=== PATIENT | female | born 1990 | race Caucasian/White ===

== ENCOUNTER 2020-05-30 08:03 | Day surgery (SDC) | payer OTHER ==
[~2020-05-30] VITALS: Ht 162.6 cm; Wt 118.8 kg
--- NOTE | ~2020-05-30 | OP ---
PATIENT NAME: KAROLYN WILSON MEDICAL RECORD: [id number] :89 LOCATION:D.OPS ADMISSION DATE: SURGEON: RAVI KUHN MD DATE OF OPERATION: 05/30/2020 PREOPERATIVE DIAGNOSIS: Lymphoma in need of IV access for chemotherapy. POSTOPERATIVE DIAGNOSIS: Lymphoma in need of IV access for chemotherapy. PROCEDURES: 1. Placement of a right-sided PowerPort under fluoroscopic guidance. 2. Immediate surgeon interpretation of the fluoroscopic images. SURGEON: Ravi Kuhn MD INSURANCE CLAIMS SUPERVISOR: None. BLOOD LOSS: Minimal. ANESTHESIA: General. COMPLICATIONS: None. The risks, possible complications and alternatives to the procedure were explained to the patient. She elects to proceed. The discussion specifically included, but was not limited to, bleeding requiring emergency reoperation, infection and the fact that port could flip, it could wear out, it could clot off. No radiologist was present for this procedure. Static fluoroscopic images were obtained and are kept in the PACS system. The surgeon interpretation of the radiographic images is dictated within the body of this operative note. OPERATIVE COURSE: The patient was conveyed to the operating room electively on 05/30/2020. General anesthesia was induced by the anesthesia staff. The chest and right neck were sterilely prepped and draped. I interrogated the right neck with the hand-held ultrasound. I percutaneously accessed the right internal jugular vein in an antegrade fashion. The Guidewire was passed easily. This was visualized under fluoroscopy. An incision was accomplished around the wire. Another incision was accomplished in the right anterior superior chest. This was a transverse incision. The catheter was tunneled from the chest incision to the neck incision. A dilator sheath was advanced over the wire. The dilator and wire were removed. The catheter was advanced down the peel-away sheath, which was then removed. Some subcutaneous dissection was performed around the catheter in the neck. This was to prevent a kink. The port was sutured to the underlying pectoralis fascia with 3-point fixation utilizing 3-0 Prolenes. I then removed some of the subcutaneous adipose tissue from between the port and the skin. The subdermis was approximated with interrupted 3-0 Vicryls. The skin was approximated with a running intracuticular 3-0 Vicryl. I percutaneously accessed the port. It flushed easily. It aspirated dark, nonpulsatile blood. The skin incision was closed in interrupted intracuticular 3-0 Vicryls. Sterile dressings were applied. OPERATIVE REPORT [id number] KAROLYN WILSON An image was obtained over the mediastinum. It appeared that the tip of the catheter was at the cavoatrial junction. Another image was obtained over the right lung apex. There was no evidence of pneumothorax. No evidence of kinking or twisting of the PowerPort catheter. The patient was then extubated and conveyed to post-anesthesia care unit where she was in stable condition. TRANSINT:[id number] Voice Confirmation ID: [id number] DOCUMENT ID: [id number] RAVI KUHN MD CC: [id number] DICTATION DATE: 06/09/20 170 NURSE INFORMATICS EDUCATOR: 06/09/20 182 [facility] 05/30/20 [address] [place] [address]
[~2020-05-30 08:03] MED LIST: ADDERALL 30 MG30 MG PO; BUSPIRONE HCL30 MG PO; COZAAR100 MG PO; GLIPIZIDE10 MG PO; HYDROCODON-ACET15 ML PO; K-DUR20 MEQ PO; KLONOPIN1 MG PO; LASIX40 MG; LIPITOR20 MG PO; OMEPRAZOLE40 MG PO; PROVENTIL/2.5 MG/3 M INH; TOPROL XL200 MG PO; VENTOLIN HFA [SP8 GM INH; ZANAFLEX4 MG PO; ZETIA10 MG PO; ZOLOFT100 MG PO
[2020-05-30 08:20] LABS: BASOPHILS 0.2 % (0-2); EOSINOPHILS 1.3 % (0-7); HEMATOCRIT 41.4 % (36.0-48.0); HEMOGLOBIN 13.3 g/dL (12-16); IMMATURE GRANULOCYTES 0.5 % (0-5); LYMPHOCYTES 21.9 % (15-50); MCH 28.7 pg (26.0-34.0); MCHC 32.1 g/dL (31.0-37.0); MCV 89.2 fL (80.0-100.0); MONOCYTES 5.7 % (2-11); NEUTROPHILS 70.4 % (40-80); PLATELET COUNT 405 10x3/uL (130-400); RBC 4.64 10x6/uL (4.00-5.40); RDW 14.1 % (11.5-14.5); WBC 12.2 10x3/uL (4.8-10.8)
[2020-05-30 08:35] LABS: INR 0.86 (0.85-1.17); PROTIME 11.7 SECONDS (11.6-15.0)
[2020-05-30 10:04] LABS: HCG SERUM NEGATIVE (NEGATIVE)
[2020-05-30 10:34] VITALS: BP 131/80; Ht 162.6 cm; Wt 118.8 kg
--- NOTE | 2020-05-30 18:04 | NUR ---
1550 PT STATES NAUSEA HAS RESOLVED WITH ZOFRAN AND PAIN IS 3/10 AND TOLERABLE. DISCHARGE INSTRUCTIONS GIVEN TO PT AND AND BOTH VERBALIZED AN UNDERSTANDING. IV D/C'D WITH CANNULA INTACT, PRESSURE APPLIED AND DRSG PLACED. DISCHARGE CRITERIA MET AND W/O C/O
== END 2020-05-30 16:00 | disposition home or self-care (01) ==
LOC: D.OPS 08:03
PROVIDERS: Anesthesiology; ATTEND Surgery
DX: C81.92 Hodgkin lymphoma, unspecified, intrathoracic lymph nodes (principal)

== ENCOUNTER 2020-06-29 12:05 | Inpatient (IN) | payer MEDICAID ==
[~2020-06-29] VITALS: Ht 162.6 cm; Wt 117.5 kg
--- NOTE | ~2020-06-29 | HEMODYNAMI ---
PATIENT:KAROLYN WILSON MEDICAL RECORD: [id number] : [birth year] LOCATION:PérezGA Pérez2213 ADMISSION DATE: 06/29/20 Generatedon:07/09/202010:33 Patient name: KAROLYN WILSON Patient #: [id number] SSN : : 1990 Date of study: 07/09/2020 Page: Of Hemodynamic Procedure Report Patient Data Patient Demographics Procedure consent was obtained First Name: KAROLYN Gender: Female Last Name: STEVE : 1990 [facility] Initial: PHANI Age: 30 year(s) Patient #: [id number] Race: Unknown Additional ID: [id number] Contact details Address: [address] [place] [address] State: [place] City: [place] Zip code: [address] Past Medical History Allergies Allergen Reaction Date Comments Reported Other allergy 07/09/2020 wellbutrin Admission Admission Data Admission Date: 06/29/2020 Admission Time: 14:17 Room #: D.[facility] Height (in.): 64 BSA: 2.18 (m2) Height (cm.): 162.56 BMI: 44.29 (kg/m2) Weight (lbs.): 258 Weight (kg.): 117.03 Procedure Procedure Types Cath Procedure Peripheral Cath Diagnostic Procedure Director Oncology Peripheral Procedures PICC PICC Line Placement Procedure Description Procedure Date Procedure Date: 07/09/2020 Procedure Start Time: 9:51 Procedure Staff Name Function Fan Zamora MD Performing Physician Amber Doss RT Farm Tractor Operator Adi MOSCOSO RN Nurse Estevan Wang RT Scrub Procedure Data Cath Procedure Fluoroscopy Diagnostic fluoroscopy Total fluoroscopy Time: 1 time: 1 min min Diagnostic fluoroscopy Total fluoroscopy dose: 15 dose: 15 mGy mGy Procedure Medications Medication Administration Route Dosage Lidocaine 1% added to field 20 Heparin Flush Bag added to field 1 bags (1000units/500ml NS) Benadryl I.V. 50 mg Fentanyl I.V. 50 mcg Versed 1 mg Fentanyl I.V. 50 mcg Versed 1 mg Fentanyl I.V. 50 mcg Versed 1 mg Hemodynamics Rest BSA: 2.18 (m2) O2 Consumption: Estimated: 251.8 (ml/min) O2 Consumption indexed: Estimated:115.5 (ml/min/m) Heart Rate: 92 (bpm) Snapshots Pre Cath Intra NCS Post Cath Vital Signs Time Heart Resp SPO2 etCO2 NIBP (mmHg) Rhythm Pain Sedation Rate (ipm) (%) (mmHg) Status Level (bpm) 9:26:23 91 11 0 137/88(106) NSR 0 (11) 10(A) , No pain 9:30:37 90 28 0 143/95(117) NSR 0 (11) 10(A) , No pain 9:34:55 88 13 95 0 152/95(120) NSR 0 (11) 10(A) , No pain 9:39:20 87 17 96 0 151/93(113) NSR 0 (11) 10(A) , No pain 9:43:38 90 32 98 0 142/88(110) NSR 0 (11) 10(A) , No pain 9:48:37 80 18 100 29.3 Measuring NSR 0 (11) 10(A) , No pain 9:48:53 82 19 100 30 124/86(101) NSR 0 (11) 10(A) , No pain 9:53:52 84 6 100 34.5 Measuring NSR 0 (11) 10(A) , No pain 9:53:54 84 6 100 33.8 144/91(114) NSR 0 (11) 10(A) , No pain 9:58:10 91 20 100 34.5 146/95(119) NSR 0 (11) 10(A) , No pain 10:02:27 92 23 100 34.6 145/97(115) NSR 0 (11) 10(A) , No pain 10:06:42 97 20 99 33.1 142/94(113) NSR 0 (11) 10(A) , No pain 10:10:58 101 18 98 30.1 140/90(106) NSR 0 (11) 10(A) , No pain 10:15:15 102 23 99 36.1 146/92(111) NSR 0 (11) 10(A) , No pain 10:19:28 100 22 98 36.1 146/94(113) NSR 0 (11) 10(A) , No pain 10:23:45 99 22 98 35.3 139/92(110) NSR 0 (11) 10(A) , No pain 10:27:59 99 10 100 30.8 143/92(110) NSR 0 (11) 10(A) , No pain 10:32:16 96 35 99 33 142/87(106) NSR 0 (11) 10(A) , No pain Medications Time Medication Route Dose Verified Delivered Reason Notes Effe ctiveness by by 9:47:45 Lidocaine 1% added 20ml Fan Chavira for local to vial Sera Zamora MD anesthetic field [place] 9:48:00 Heparin Flush added 1 Fan Chavira used for Bag to bags Sera Zamora MD procedure (1000units/500ml field [place] NS) 9:48:10 Benadryl I.V. 50 mg Fan Bustillosr for Burda, BLANKA sedation RN 9:52:05 Fentanyl I.V. 50 Fan Bustillosr for mcg Burda, BLANKA sedation RN 9:52:11 Versed 1 mg Fan Minner for Burda, BLANKA sedation RN 9:56:48 Fentanyl I.V. 50 Fan Minner for mcg Burda, BLANKA sedation RN 9:56:51 Versed 1 mg Fan Minner for Burda, BLANKA sedation RN 10:01:00 Fentanyl I.V. 50 Fan Minner for mcg Burda, BLANKA sedation RN 10:01:03 Versed 1 mg Fan Minner for Burda, BLANKA sedation operating system designer Log Time Note 9:17:11 Patient Height : 64 inches 9:17:11 Patient Weight : 258 lbs 9:18:54 Time tracking: Regular hours (M-F 7:00 - 5:00) 9:19:10 ----Pre-sedation anethsthesia assessment.---- 9:19:45 Plan of Care:Hemodynamics will remain stable., Cardiac rhythm will remain stable., Comfort level will be maintained., Respiratory function will remain adequate., Patient/ family verbilizes understanding of procedure., Procedure tolerated without complication., Recovers from procedure without complications.. 9:19:54 Patient received from Med/Surg to IR Alert and oriented. Tansferred to table in Supine position. 9:19:57 Signed procedure consent form obtained from patient. 9:19:59 - 9:20:16 H&P Date Dictated: 07/09/2020 Greater than 30 days; new H&P dictated by physician. Or brief H&P completed., Emergent; H&P N/A, Within 30 days and on chart., H&P Addendum completed by physician on day of procedure. (MUST COMPLETE FOR ALL OUTPATIENTS), ER History on chart., New H&P dictated by physician.. 9:20:39 Sleep apnea? Yes 9:20:43 Snore? Yes 9:21:00 Airway obstruction? Yes sob 9:21:05 Dentures? No ? 9:21:42 Patient diabetic? Yes. 9:22:22 Patient allergic to Other allergywellbutrin 9:22:26 Pre-procedure instructions explained to patient. 9:22:34 Pre-op teaching completed and patient verbalized understanding. 9:22:38 Family unavailable. 9:22:45 Patient NPO since Midnight. 9:22:50 Is the patient allergic to Iodine/contrast media? No. 9:22:59 Is patient on blood thinner?No 9:23:02 - 9:23:13 Use device set IR Diagnostic 9:23:23 Tegaderm 4 x 4 ([id number]) opened to sterile field. 9:23:24 Sterile Angiographic Pack opened to sterile field. 9:23:25 Bag Decanter () opened to sterile field. 9:23:44 - 9:23:57 ECG and BP/O2 sat monitors applied to patient. 9:24:05 Baseline sample Acquired. 9:25:13 Vital chart was started ::23 Full Disclosure recording started ::25 - 9::34 Right neck area was prepped with chlora-prep and draped in sterile fashion 9:27:36 - 9:27:48 Fire Safety Assessment: A--An alcohol-based skin anteseptic being used preoperatively., C--Open oxygen or nitrous oxide is being used. 9:31:29 5) <15 or on dialysis Very severe, or end stage kidney failure. 9:47:45 Lidocaine 1% 20ml vial added to field was administered by Fan Zamora MD; for local anesthetic; Verbal order read back and verified. 9:48:00 Heparin Flush Bag (1000units/500ml NS) 1 bags added to field was administered by Fan Zamora MD; used for procedure; Verbal order read back and verified. 9:48:10 Benadryl 50 mg I.V. was administered by Adi MOSCOSO RN; for sedation ; Verbal order read back and verified. 9:50:02 Physician arrived 9:50:03 --------ALL STOP TIME OUT------ 9:50:05 Final Timeout: patient, procedure, and site verified with staff and physician. All members of the team are in agreement. 9:51:03 Procedure started. 9:51:09 Local anesthetic to right IJ vein with Lidocaine 1% by Fan Zamora MD.INITIAL ACCESS ONLY 9:52:05 Fentanyl 50 mcg I.V. was administered by Adi MOSCOSO RN; for sedation; Verbal order read back and verified. 9:52:11 Versed 1 mg was administered by Adi MOSCOSO RN; for sedation; Verbal order read back and verified. 9:56:48 Fentanyl 50 mcg I.V. was administered by Adi MOSCOSO RN; for sedation; Verbal order read back and verified. 9:56:51 Versed 1 mg was administered by Adi MOSCOSO RN; for sedation; Verbal order read back and verified. 9:58:29 Venous access obtained using ultrasound guidance. 9:58:32 PICC 10:00:47 AMPLATZ Super Stiff 75cm wire ([id number]) opened to sterile field. 10:00:57 Use device set PICC 10:00:59 SHIELD Sorbaview ([id number]) opened to sterile field. 10:01:00 Fentanyl 50 mcg I.V. was administered by Adi MOSCOSO RN; for sedation; Verbal order read back and verified. 10:01:03 Versed 1 mg was administered by Adi MOSCOSO RN; for sedation; Verbal order read back and verified. 10:05:01 TUNNELED PICC line was trimmed to 25cm and advanced to the superior zaira a cava.Position verified under fluoroscopy. 10:13:46 Dermabond Pen opened to sterile field. 10:14:02 SUTURE SILK 2-0 BLK BR FS 18 I opened to sterile field. 10:14:02 SUTURE L27IN 2-0 MCRYL CROW MO opened to sterile field. 10:29:44 Procedure ended.(Physican Out) 10:30:13 Fluoroscopy time 01.00 minutes. 10:30:16 Fluoroscopy dose: 15 mGy 10:30:16 Flurop Dose total: 15 10:30:25 Procedure and supply charges have been captured, reviewed, submitted an d are correct. 10:32:31 Report given to Med/Surg. 10:33:18 Vital chart was stopped Device Usage Item Name Manufacture Quantity Catalog Hospital Part Current Minimal Lot# / Number Charge Number Stock Stock Serial# Code Tegaderm 4 x 3M 1 [id number] 5 4 (1626W) Sterile Cardinal 1 [id number] [id number] 5 Angiographic Health Pack Bag Decanter Microtek 1 2001S [id number] 61433 [id number] 5 (2001S) Medical Inc. AMPLATZ [place] 1 [id number] 306956 756182 5 Super Stiff Scientific 75cm wire ([id number]) SHIELD Centurion 1 [id number] 689649 537136 5 Sorbaview ([id number]) Dermabond Ethicon 1 [id number] 708756 725607 5 Pen SUTURE SILK Ethicon 1 [id number] 650502 5 2-0 BLK BR FS 18 I SUTURE L27IN Ethicon 1 [id number] 991768 5 2-0 MCRYL CROW MO Signature Audit [place] Stage Time Signature Unsigned Intra-Procedure 07/09/2020 Amber Doss 10:33:13 AM RT(R) [facility] [address] [place] [address]
--- NOTE | ~2020-06-29 | HEMODYNAMI ---
PATIENT:KAROLYN WILSON MEDICAL RECORD: [id number] : [birth year] [id number] ADMISSION DATE: 06/29/20 Generatedon:07/07/202016:23 Patient name: KAROLYN WILSON Patient #: [id number] SSN : : 1990 Date of study: 07/07/2020 Page: Of Hemodynamic Procedure Report Patient Data Patient Demographics Procedure consent was obtained First Name: KAROLYN Gender: Female Last Name: STEVE : 1990 [place] Initial: PHANI Age: 30 year(s) Patient #: [id number] Race: Unknown Additional ID: [id number] Contact details [address]: [address] [place] [address] State: [place] City: [place] Zip code: [address] Admission Admission Data Admission Date: 06/29/2020 Admission Time: 14:17 Room #: 2213 Height (in.): 64 BSA: 2.18 (m2) Height (cm.): 162.56 BMI: 44.29 (kg/m2) Weight (lbs.): 258 Weight (kg.): 117.03 Procedure Procedure Types Cath Procedure Peripheral Cath Diagnostic Procedure Hip Hop Dancer Peripheral Procedures PICC PICC Line Placement Procedure Description Procedure Date Procedure Date: 07/07/2020 Procedure Start Time: 16:16 Procedure Staff Name Function Fan Zamora MD Performing Physician Amber Doss RT [employer] French Teacher Estevan Wang RT Scrub Cecilia Servin RN Nurse Procedure Data Cath Procedure Fluoroscopy Diagnostic fluoroscopy Total fluoroscopy Time: 0.3 time: 0.3 min min Diagnostic fluoroscopy Total fluoroscopy dose: 6 dose: 6 mGy mGy Hemodynamics Rest BSA: 2.18 (m2) O2 Consumption: Estimated: 296.48 (ml/min) O2 Consumption indexed : Estimated:136 (ml/min/m) Pre Cath Intra NCS Post Cath Procedure Log Time Note 15:33:36 Patient Height : 64 inches 15:33:52 Patient Weight : 258 lbs 15:58:32 Use device set IR Diagnostic 15:58:41 Use device set PICC 15:58:48 SHIELD Sorbaview ([id number]) opened to sterile field. 15:58:50 Sterile Angiographic Pack opened to sterile field. 15:58:53 Bag Decanter () opened to sterile field. 15:59:11 PowerPICC 5Fr double lumen catheter opened to sterile field. 16:05:21 Time tracking: Regular hours (M-F 7:00 - 5:00) 16:15:50 Patient received from Med/Surg to IR Alert and oriented. Tansferred to table in Supine position. 16:15:52 Signed procedure consent form obtained from patient. 16:15:54 Pre-procedure instructions explained to patient. 16:15:58 Pre-op teaching completed and patient verbalized understanding. 16:16:04 Right Arm area was prepped with chlora-prep and draped in sterile fashion 16:16:10 --------ALL STOP TIME OUT------ 16:16:11 Final Timeout: patient, procedure, and site verified with staff and physician. All members of the team are in agreement. 16:16:27 Procedure started. 16:16:27 Full Disclosure recording started 16:16:40 Local anesthetic to right arm with Lidocaine 1% by Fan Zamora MD.INITIAL ACCESS ONLY 16:16:43 Venous access obtained using ultrasound guidance. 16:20:33 PICC line was trimmed to 40cm and advanced to the superior vena cava.Position verified under fluoroscopy. 16:20:39 Procedure ended.(Physican Out) 16:20:46 Fluoroscopy time 00.30 minutes. 16:20:50 Fluoroscopy dose: 6 mGy 16:20:50 Flurop Dose total: 6 16:20:58 Procedure and supply charges have been captured, reviewed, submitted and are correct. 16:22:05 Report given to Med/Surg. Device Usage Item Name Manufacture Quantity Catalog Hospital Part Current Minimal Lot# / Number Charge Number Stock Stock Serial# Code SHIELD Centurion 1 [id number] 5 Sorbaview ([id number]) Sterile Cardinal 1 [id number] [id number] 5 Angiographic Health Pack Bag Decanter Microtek 1 [id number] 08462 [id number] 5 (2002S) Medical Inc. PowerPICC [place] 1 [id number] 453130 [id number] 5 5Fr double lumen catheter Signature Audit [place] Stage Time Signature Unsigned Intra-Procedure 07/07/2020 Amber Doss 4:23:04 PM RT(R) [facility] [address] [place] [address]
[2020-06-29 12:53] LABS: HEMATOCRIT 37.4 % (36.0-48.0); HEMOGLOBIN 13.9 g/dL (12-16); MCH 32.3 pg (26.0-34.0); MCHC 37.2 g/dL (31.0-37.0); MCV 86.8 fL (80.0-100.0); MEAN PLATELET VOLUME 9.4 fL (7.4-10.4); PLATELET COUNT 435 10x3/uL (130-400); RBC 4.31 10x6/uL (4.00-5.40); RDW 14.8 % (11.5-14.5); WBC 10.1 10x3/uL (4.8-10.8)
[2020-06-29 13:02] LABS: APTT 34.1 SECONDS (22.8-39.4); INR 0.81 (0.85-1.17); PROTIME 11.2 SECONDS (11.6-15.0)
[2020-06-29 13:15] LABS: EOSINOPHILS 1 % (0-7); LYMPHOCYTES 24 % (15-50); MONOCYTES 2 % (2-11); NEUTROPHILS 71 % (40-80); PLATELET ESTIMATE INCREASED
[2020-06-29 13:20] LABS: CALC OSMOLALITY 222 mosm/kg (275-300); CREATININE - SERUM 0.7 mg/dL (0.6-1.3); GLUCOSE 254 mg/dL (74-106); UREA NITROGEN 6 mg/dL (7-18); eGFR NON AFRICAN AMERICAN > 90 mL/min (90-120)
[2020-06-29 13:22] LABS: ALKALINE PHOSPHATASE 158 U/L (30-120); ALT (SGPT) 40 U/L (10-68)
[2020-06-29 13:23] LABS: BILIRUBIN - TOTAL 0.22 mg/dL (0.2-1.3)
[2020-06-29 13:31] LABS: CHLORIDE - SERUM 92 mmol/L (98-107); SODIUM 106 mmol/L (136-145)
[2020-06-29 13:40] LABS: BILIRUBIN NEGATIVE (NEGATIVE); KETONE SMALL mg/dL (NEGATIVE); NITRITE NEGATIVE (NEGATIVE); UROBILINOGEN NORMAL mg/dL (< 2)
[2020-06-29 13:42] LABS: WHITE CELLS - URINE 0-5 HPF (0-4)
[2020-06-29 13:43] LABS: BACTERIA FEW HPF (NONE SEEN); EPITHELIAL CELLS 0-5 /hpf (0-5)
[2020-06-29 14:13] LABS: CKMB 0.6 U/L (0.0-3.6); CREATINE KINASE 2 UL (21-215)
[2020-06-29 14:14] LABS: TROPONIN-I 0.045 ng/mL (0.000-0.060)
[2020-06-29 15:25] VITALS: BP 150/97
--- NOTE | 2020-06-29 15:26 | NUR ---
SPOKE WITH Tacho MCCONNELL APN ABOUT PT K AND NA LEVELS. ADVISED TO START NS40K @ 75 ML AN HOUR. CONSULT RENAL.
[2020-06-29 17:03] VITALS: BP 132/84; BMI 44.5
[2020-06-29] MEDS ORDERED: FUROSEMIDE20 MG PO ×2 (17:10)
[2020-06-29] MEDS ORDERED: ZOFRAN8 MG PO (17:14)
[2020-06-29] MEDS ORDERED: TRAZODONE HCL50 MG PO (17:15)
[2020-06-29] MEDS ORDERED: ALDACTONE50 MG PO (17:15)
--- NOTE | 2020-06-29 18:01 | NUR ---
CALLED Tacho MCCONNELL APN ABOUT PT REQUEST HER HYDROCODONE RESTARTED. SOMETHING FOR HER ANXIETY IV. HER 4.0 LACTIC ACID. ALSO, UPDATED MED REC FINISHED. CL IN REACH. WILL DO A COVID TEST.
[2020-06-29 19:25] LABS: BILIRUBIN - DIRECT 0.04 mg/dL (0.00-0.30); BILIRUBIN - INDIRECT 0.75 mg/dL (0.00-1.00); BILIRUBIN - TOTAL 0.79 mg/dL (0.2-1.3); CARBON DIOXIDE 26.2 mmol/L (21.0-32.0); CHLORIDE - SERUM 87 mmol/L (98-107); SODIUM 121 mmol/L (136-145)
[2020-06-29 19:57] LABS: CALC OSMOLALITY 257 mosm/kg (275-300); CREATININE - SERUM 0.7 mg/dL (0.6-1.3); UREA NITROGEN 5 mg/dL (7-18)
[2020-06-29 19:58] LABS: ALBUMIN 2.8 g/dL (3.4-5.0); ALKALINE PHOSPHATASE 121 U/L (30-120); ALT (SGPT) 35 U/L (10-68); POTASSIUM - SERUM 3.8 mmol/L (3.5-5.1); PROTEIN - SERUM 6.4 g/dL (6.4-8.2); eGFR NON AFRICAN AMERICAN > 90 mL/min (90-120)
[2020-06-29 19:59] LABS: CALCIUM 6.9 mg/dL (8.5-10.1); GLUCOSE 410 mg/dL (74-106)
[2020-06-29 20:00] VITALS: BP 156/98
--- NOTE | 2020-06-29 20:00 | NUR ---
SITTING UP IN BED WATCHING TV. NO COMPLAINTS VOICED AT THIS TIME. RESP UNLABORED.IV TO LFA INTACT WITOUT REDNESS OR EDEMA NOTED. UP AD EFE IN ROOM. STEADY GAIT. FAMILY AT BEDSIDE
--- NOTE | 2020-06-29 20:20 | NUR ---
CALLED PLACED TO DR WALKER. FELICIA ESPINOSA RETURNED CALL. LAB RESULTS GIVEN TO FELICIA.
[2020-06-30] VITALS (7 sets, daily range): BP systolic 119–155; BP diastolic 71–94; Ht 162.6 cm; Wt 117.5 kg
--- NOTE | 2020-06-30 00:12 | NUR ---
I have reviewed this patient and I concur with the Shift Assessment completed by the Licensed Practical Nurse today this shift.
--- NOTE | 2020-06-30 00:44 | NUR ---
DR BOUCHER PAGED. BENJI DUARTE RETURNED CALL. RESULTS OF SODIUM GIVEN TO FELICIA. STATES SHE WILL RELAY RESULTS TO DR OBUCHER
[2020-06-30 07:35] LABS: ALKALINE PHOSPHATASE 140 U/L (30-120); ALT (SGPT) 47 U/L (10-68); CALCIUM 8.4 mg/dL (8.5-10.1); CARBON DIOXIDE 26.8 mmol/L (21.0-32.0); CREATININE - SERUM 0.9 mg/dL (0.6-1.3); POTASSIUM - SERUM 4.3 mmol/L (3.5-5.1); UREA NITROGEN 8 mg/dL (7-18); eGFR NON AFRICAN AMERICAN 78 mL/min (90-120)
[2020-06-30 07:36] LABS: ALBUMIN 3.5 g/dL (3.4-5.0); PROTEIN - SERUM 6.1 g/dL (6.4-8.2)
[2020-06-30 07:37] LABS: BILIRUBIN - TOTAL 0.62 mg/dL (0.2-1.3); CALC OSMOLALITY 287 mosm/kg (275-300); CHLORIDE - SERUM 96 mmol/L (98-107); GLUCOSE 379 mg/dL (74-106); SODIUM 137 mmol/L (136-145)
[2020-06-30 07:56] LABS: BASOPHILS 0.5 % (0-2); EOSINOPHILS 1.5 % (0-7); HEMATOCRIT 32.2 % (36.0-48.0); IMMATURE GRANULOCYTES 0.4 % (0-5); LYMPHOCYTES 18.4 % (15-50); MCH 30.6 pg (26.0-34.0); MCHC 34.2 g/dL (31.0-37.0); MEAN PLATELET VOLUME 9.9 fL (7.4-10.4); MONOCYTES 16.1 % (2-11); NEUTROPHILS 63.1 % (40-80); PLATELET COUNT 449 10x3/uL (130-400); RBC 3.59 10x6/uL (4.00-5.40); RDW 15.3 % (11.5-14.5); WBC 7.6 10x3/uL (4.8-10.8)
[2020-06-30 07:57] LABS: MCV 89.7 fL (80.0-100.0)
[2020-06-30 12:27] LABS: VANCOMYCIN - TROUGH 10.4 ug/mL (10.0-20.0)
--- NOTE | 2020-06-30 12:56 | NUR ---
ECHO IN ROOM. PT TRYING TO SLEEP. VANC GIVEN PER EMAR. WAITING ON DIFLUCAN FROM PHARMACY. CL IN REACH. WCTM
--- NOTE | 2020-06-30 22:30 | NUR ---
PATIENT RESTING IN BED WATCHING TV WITH AT BEDSIDE. NO S/S OF ACUTE DISTRESS. NO C/O AT THIS TIME. PATIENT IS ON 2L OF O2. PATIENT HAS A LEFT HAND, D5 @ 100 ML/HR. IV IS PATENT WITHOUT REDNESS, SWELLING, OR TENDERNESS. PATIENT RIGHT PORT IS INFECTED. IT WAS PASSED IN REPORT, AND PATIENT TOLD ME ABOUT THE 0000 SODIUM DRAW. WILL CALL [facility] [place] WITH THE RESULTS.
--- NOTE | 2020-07-01 02:24 | NUR ---
I CALLED DR. WALKER CELL PHONE NUMBER AND TRIED TO REPORT THE SODIUM REDRAW. THE NUMBER IS NOT CORRECT AND WOULD NOT RING. I CALLED THE ANSWERING SERVICE THREE TIMES BEFORE THEY PICKED UP AND THE ON-CALL WAS PAGED. IF THEY CALL BACK I WILL REPORT THE NEW LAB. WILL CONTINUE TO MONITOR.
[2020-07-01 04:12] VITALS: BP 131/66
--- NOTE | 2020-07-01 05:30 | NUR ---
PATEINT REFUSED TO TAKE A SHOWER THIS MORNING. PATEINT STATED, "THEY AREN'T COMING TO GET ME UNTIL 1000 OR 1100". I TRIED TO EXPLAIN TO THE PATIENT THAT WE DON'T EVER KNOW WHEN THEY WILL COME AND GET HER, AND THE PATEINT STILL REFUSED TO TAKE HER SHOWER AT THIS TIME. CALL LIGHT WITHIN REACH. WILL CONTINUE TO MONITOR.
[2020-07-01 05:43] LABS: BASOPHILS 0.4 % (0-2); HEMATOCRIT 31.7 % (36.0-48.0); HEMOGLOBIN 10.8 g/dL (12-16); IMMATURE GRANULOCYTES 0.4 % (0-5); LYMPHOCYTES 20.1 % (15-50); MCH 30.1 pg (26.0-34.0); MCHC 34.1 g/dL (31.0-37.0); MCV 88.3 fL (80.0-100.0); MEAN PLATELET VOLUME 9.7 fL (7.4-10.4); MONOCYTES 10.2 % (2-11); NEUTROPHILS 66.9 % (40-80); PLATELET COUNT 438 10x3/uL (130-400); RBC 3.59 10x6/uL (4.00-5.40); RDW 14.9 % (11.5-14.5)
[2020-07-01 05:50] LABS: ANION GAP 14.4 mmol/L (8-16); CALCIUM 8.4 mg/dL (8.5-10.1); CARBON DIOXIDE 25.6 mmol/L (21.0-32.0)
--- NOTE | 2020-07-01 06:45 | NUR ---
A&O RESTING IN BED WITH EYES OPEN. THIS NURSE EXPLAINED TO PATIENT THAT HIBICLEANSE HAS TO BE DONE BEFORE SURGERY THIS AM. PATIENT AGREED AND STATED SHE WILL TAKE ONE AROUND [phone] THIS AM. NPO D/T SURGERY FOR REMOVAL OF INFECTED PORT. NO C/O PAIN. NO S/S OF ACUTE DISTRESS NOTED. IV TO LEFT HAND, D5 NS INFUSING @ 100ML/HR. SITE PATENT WITHOUT REDNESS OR SWELLING. DENIES ANY NEEDS AT THIS TIME. CALL LIGHT IN REACH. WILL CONTINUE TO MONITOR.
[2020-07-01 08:55] VITALS: BP 108/43
--- NOTE | 2020-07-01 12:12 | MORECARE ---
CASE MANAGEMENT DISCHARGE SUMMARY PATIENT: KAROLYN WILSON UNIT: [id number] ADM DATE: 06/29/20 AGE: 30 : [birth year] SEX: F ROOM/BED: D.2213 AUTHOR: KEVIN CEHSTER PHYSICIAN: REFERRING PHYSICIAN: ALEX ELLIOTT MD DATE OF SERVICE: 07/01/20 Discharge Plan Patient Name: KAROLYN WILSON Facility: [facility]:[place] : 1990 Planned Disposition: Home or Self Care Anticipated Discharge Date: Discharge Date: Expected LOS: Initial Reviewer: [email or web address] Initial Review Date: 06/29/2020 Generated: 07/01/20 1:11 pm Patient Name: KAROLYN WILSON Page [id number] at 1212 All edits/amendments must be made on the electronic document DICTATION DATE: 07/01/20 1211 BLAST FURNACE OPERATOR: KARON 07/01/20 1211 RPT#: [id number] DC DATE: STATUS: ADM IN [facility] [address] [place] [address] END OF REPORT
--- NOTE | 2020-07-01 12:45 | MORECARE ---
CASE MANAGEMENT DISCHARGE SUMMARY PATIENT: KAROLYN WILSON UNIT: [id number] ADM DATE: 06/29/20 AGE: 30 : [birth year] SEX: F ROOM/BED: D.2213 AUTHOR: KEVIN CHESTER PHYSICIAN: REFERRING PHYSICIAN: ALEX ELLIOTT MD DATE OF SERVICE: 07/01/20 Discharge Plan Patient Name: KAROLYN WILSON Facility: [facility]:[place] : 1990 Planned Disposition: Home or Self Care Anticipated Discharge Date: Discharge Date: Expected LOS: Initial Reviewer: [email or web address] Initial Review Date: 06/29/2020 Generated: 07/01/20 1:44 pm DCPIA - Discharge Planning Initial Assessment Updated by [email or web address]: Pippa Monsalve on 07/01/20 12:42 pm * Is the patient Alert and Oriented? Yes * How many steps to enter\exit or inside your home? * PCP KELSI ELLIS * [facility] * Preadmission Environment Home with Family * ADLs Independent * Equipment None * List name and contact numbers for known caregivers / representatives who currently or will assist patient after discharge: BRI ENNISKAROLINA [phone] * Verbal permission to speak to the caregivers and representatives has been obtained from the patient. N/A * Community resources currently utilized None * Additional services required to return to the preadmission environment? No * Can the patient safely return to the preadmission environment? Yes * Has this patient been hospitalized within the prior 30 days at any hospital? No Last DP export: 07/01/20 11:12 a Patient Name: KAROLYN WILSON Page 90814 at 1245 All edits/amendments must be made on the electronic document DICTATION DATE: 07/01/20 1244 BOGGER OPERATOR: KARON 07/01/20 1244 RPT#: [id number] DC DATE: STATUS: ADM IN [facility] [address] [place] [address] END OF REPORT
--- NOTE | 2020-07-01 12:53 | MORECARE ---
CASE MANAGEMENT DISCHARGE SUMMARY PATIENT: KAROLYN WILSON UNIT: [id number] ADM DATE: 06/29/20 AGE: 30 : [birth year] SEX: F ROOM/BED: D.2213 AUTHOR: KEVIN CHESTER PHYSICIAN: REFERRING PHYSICIAN: ALEX ELLIOTT MD DATE OF SERVICE: 07/01/20 Discharge Plan Patient Name: KAROLYN WILSON Facility: [facility]:[place] : 1990 Planned Disposition: Home or Self Care Anticipated Discharge Date: Discharge Date: Expected LOS: Initial Reviewer: [email or web address] Initial Review Date: 06/29/2020 Generated: 07/01/20 1:52 pm Comments DCP- Discharge Planning Updated by [email or web address]: Pippa Monsalve on 07/01/20 11:[address] Patient Name: KAROLYN WILSON Admission Status: ER Accout number: [id number] Admission Date: 06-29-2020 : 1990 Admission Diagnosis:SEPSIS, UNSPECIFIED ORGANISM Attending: ALEX ELLIOTT Current LOS: 2 Anticipated DC Date: Planned Disposition: Home or Self Care Primary Insurance: MEDICAID [place] Discharge Planning Comments: CM met with patient to complete initial dc planning assessment. CM educated patient on the CM role and verbal consent given by patient to complete assessment. Patient lives at home with her spouse where she is independent with her care. At discharge patient plans to return home and feels this is a safe discharge. CM discussed availability of home health, rehab services, and medical equipment. She would like to be tested for O2 need prior to discharge. She will need a walk test. Patient denied known discharge needs at this time. CM will continue to follow and will assist as needed with dc plans/needs. Hide Dropper: Pippa Monsalve DCPIA - Discharge Planning Initial Assessment Updated by [email or web address]: Pippa Monsalve on 07/01/20 12:42 pm * Is the patient Alert and Oriented? Yes * How many steps to enter\exit or inside your home? * PCP KELSI ELLIS * [facility] * Preadmission Environment Home with Family * ADLs Independent * Equipment None * List name and contact numbers for known caregivers / representatives who currently or will assist patient after discharge: BRI ENNISKAROLINA [phone] * Verbal permission to speak to the caregivers and representatives has been obtained from the patient. N/A * Community resources currently utilized None * Additional services required to return to the preadmission environment? No * Can the patient safely return to the preadmission environment? Yes * Has this patient been hospitalized within the prior 30 days at any hospital? No Last DP export: 07/01/20 11:45 a Patient Name: KAROLYN WILSON Page 50885 at 1253 All edits/amendments must be made on the electronic document DICTATION DATE: 07/01/20 1253 INVESTIGATOR INTERNAL AFFAIRS: KARON 07/01/20 1253 RPT#: [id number] DC DATE: STATUS: ADM IN [facility] [address] [place] [address] END OF REPORT
[2020-07-01 12:57] VITALS: BP 151/84
[2020-07-01 16:05] VITALS: BP 146/88
[2020-07-01 20:00] VITALS: BP 155/95
[2020-07-02] VITALS: BP 93/56
[2020-07-02 04:00] VITALS: BP 132/88
--- NOTE | 2020-07-02 06:00 | NUR ---
I have reviewed this patient and I concur with the Shift Assessment completed by the Licensed Practical Nurse today this shift.
[2020-07-02 07:29] LABS: BASOPHILS 0.6 % (0-2); EOSINOPHILS 1.8 % (0-7); HEMATOCRIT 32.1 % (36.0-48.0); HEMOGLOBIN 10.4 g/dL (12-16); IMMATURE GRANULOCYTES 0.9 % (0-5); LYMPHOCYTES 24.9 % (15-50); MCHC 32.4 g/dL (31.0-37.0); MCV 89.4 fL (80.0-100.0); MONOCYTES 8.4 % (2-11); NEUTROPHILS 63.4 % (40-80); PLATELET COUNT 297 10x3/uL (130-400); RBC 3.59 10x6/uL (4.00-5.40); WBC 6.6 10x3/uL (4.8-10.8)
[2020-07-02 08:40] LABS: ALBUMIN 2.7 g/dL (3.4-5.0); BILIRUBIN - TOTAL 0.37 mg/dL (0.2-1.3); CALCIUM 8.6 mg/dL (8.5-10.1); CARBON DIOXIDE 23.9 mmol/L (21.0-32.0); CREATININE - SERUM 1.6 mg/dL (0.6-1.3); POTASSIUM - SERUM 3.9 mmol/L (3.5-5.1); PROTEIN - SERUM 6.3 g/dL (6.4-8.2)
[2020-07-02 09:08] VITALS: BP 120/70
[2020-07-02 12:14] VITALS: BP 141/82
[2020-07-02 13:43] LABS: POTASSIUM - URINE 24.9 MMOL/L (12.0-62.0)
[2020-07-02 17:07] VITALS: BP 128/64; BP 94/58
[2020-07-02 20:00] VITALS: BP 99/64
--- NOTE | 2020-07-02 21:38 | NUR ---
TOOK BP BEFORE ADMINISTERING METOPROLOL. BP: 120/90
[2020-07-03] VITALS: BP 107/66
[2020-07-03 04:00] VITALS: BP 107/56
[2020-07-03 06:33] LABS: BASOPHILS 0.4 % (0-2); EOSINOPHILS 1.9 % (0-7); HEMATOCRIT 29.1 % (36.0-48.0); HEMOGLOBIN 9.1 g/dL (12-16); IMMATURE GRANULOCYTES 0.3 % (0-5); MCH 27.5 pg (26.0-34.0); MCHC 31.3 g/dL (31.0-37.0); MCV 87.9 fL (80.0-100.0); MEAN PLATELET VOLUME 9.5 fL (7.4-10.4); MONOCYTES 12.1 % (2-11); NEUTROPHILS 64.3 % (40-80); PLATELET COUNT 299 10x3/uL (130-400); RBC 3.31 10x6/uL (4.00-5.40); RDW 15.1 % (11.5-14.5)
[2020-07-03 07:24] LABS: ALBUMIN 2.7 g/dL (3.4-5.0); BILIRUBIN - TOTAL 0.55 mg/dL (0.2-1.3); CALCIUM 8.4 mg/dL (8.5-10.1); CARBON DIOXIDE 21.8 mmol/L (21.0-32.0); POTASSIUM - SERUM 3.8 mmol/L (3.5-5.1); PROTEIN - SERUM 6.4 g/dL (6.4-8.2); VANCOMYCIN - TROUGH 43.8 ug/mL (10.0-20.0)
[2020-07-03 07:37] LABS: CREATININE - SERUM 3.5 mg/dL (0.6-1.3)
[2020-07-03 09:25] VITALS: BP 100/53
[2020-07-03 13:10] VITALS: BP 90/59
[2020-07-03 13:23] LABS: CREATININE - URINE 50.8 mg/dL (30-125); PRO/CRE RATIO URINE 0.5 mg/g; PROTEIN - URINE 26.9 mg/dL (0.0-11.9)
[2020-07-03 17:48] VITALS: BP 131/86
--- NOTE | 2020-07-04 00:30 | NUR ---
PATIENT C/O NOSE BLEED, APPLIED PRESSURE WITH COLD WASH CLOTHS, CHANGED PATIENTS GOWN, WILL CONTINUE TO MONITOR PATIENT, CALL LIGHT WITHIN REACH
[2020-07-04 04:00] VITALS: BP 116/72
[2020-07-04 07:44] LABS: ALBUMIN 2.5 g/dL (3.4-5.0); ANION GAP 23.8 mmol/L (8-16); BILIRUBIN - TOTAL 0.39 mg/dL (0.2-1.3); CALCIUM 8.2 mg/dL (8.5-10.1); CARBON DIOXIDE 17.2 mmol/L (21.0-32.0); PHOSPHOROUS 7.7 mg/dL (2.5-4.9); PROTEIN - SERUM 6.2 g/dL (6.4-8.2); VANCOMYCIN - RANDOM 27.3 ug/mL (10.0-20.0)
[2020-07-04 07:46] LABS: CREATININE - SERUM 4.4 mg/dL (0.6-1.3)
--- NOTE | 2020-07-04 08:15 | NUR ---
PT ASKED TO TAKE SHOWER. D/C FROM IV, GAVE TOILETRIES AND TOWELS. CHANGED BED LININS, PROVIDED FRESH GOWN. EDUCATED PT TO USE CL WHEN OUT SO SHE COULD BE PLACED BACK ON INFUSION. WILL CONTINUE TO MONITOR.
--- NOTE | 2020-07-04 09:15 | NUR ---
PT C/O ANX, AND ASKED FOR ATIVAN, PROVIDED MEDS PER ORDER. BED LOW, CL IN REACH.
[2020-07-04 10:43] VITALS: BP 142/87
--- NOTE | 2020-07-04 12:30 | NUR ---
PT C/O PAIN 05/19, PROVIDED PAIN MEDS PER ORDER. BED LOW, CL IN REACH.
[2020-07-04 13:03] VITALS: BP 139/88
--- NOTE | 2020-07-04 13:32 | NUR ---
Nutrition follow-up: Pts diet changed to consistent CHO; no free water per renal PO intake is poor at this time Pt in isolation Wt: 258# +BM Will continue to provide food choices and honor food preferences within diet restrictions. Will offer Glucerna Shake nutritional supplements. RDN following.
--- NOTE | 2020-07-04 14:30 | NUR ---
CHANGED DRSG ON RIGHT SUBCLAV INCISION. DRAINAGE RED-YELLOW, FLUSHED WITH SALINE, PACKED 1/4" GAUZE AND APPLIED 2X2 GAUZE WITH PAPER TAPE. PT TOLERATED WELL. BED LOW, CL IN REACH.
--- NOTE | 2020-07-04 15:30 | NUR ---
PT C/O PAIN 05/19, PROVIDED PAIN MEDS PER ORDER, WILL CONTINUE TO MONITOR.
--- NOTE | 2020-07-04 16:06 | NUR ---
RECEIVED BEDSIDE REPORT. PT SITTING UP IN BED A&O X4. DENIES NEEDS. PIV IN RIGHT HAND, PATENT AND INFUSING, NO REDNESS OR SWELLING. O2 SAT 95% VIA NC AT 3L. INCISION ON RIGHT SUBCLAV, DRSG C/D/I, REDNESS AROUND SITE, NO SWELLING. PT ABLE TO AMBULATE WITH NO ASSIST. EDUCATED ON NEEDS AND CL, VERBALIZED UNDERSTANDING. BED LOW, RAILS X2. CL IN REACH, WILL CONTINUE TO MONITOR.
[2020-07-04 17:22] VITALS: BP 134/88
[2020-07-04 21:08] VITALS: BP 122/76
[2020-07-05] VITALS (8 sets, daily range): BP systolic 116–138; BP diastolic 34–88
[2020-07-05 05:47] LABS: BASOPHILS 0.5 % (0-2); EOSINOPHILS 2.4 % (0-7); HEMATOCRIT 27.4 % (36.0-48.0); HEMOGLOBIN 8.6 g/dL (12-16); IMMATURE GRANULOCYTES 0.7 % (0-5); LYMPHOCYTES 22.8 % (15-50); MCH 27.2 pg (26.0-34.0); MCHC 31.4 g/dL (31.0-37.0); MCV 86.7 fL (80.0-100.0); MEAN PLATELET VOLUME 9.5 fL (7.4-10.4); NEUTROPHILS 64.6 % (40-80); PLATELET COUNT 330 10x3/uL (130-400); RBC 3.16 10x6/uL (4.00-5.40); RDW 14.7 % (11.5-14.5); WBC 6.1 10x3/uL (4.8-10.8)
[2020-07-05 05:53] LABS: ANION GAP 16.1 mmol/L (8-16); CREATININE - SERUM 5.1 mg/dL (0.6-1.3); POTASSIUM - SERUM 3.4 mmol/L (3.5-5.1); VANCOMYCIN - RANDOM 23.3 ug/mL (10.0-20.0)
[2020-07-05 05:55] LABS: CARBON DIOXIDE 23.3 mmol/L (21.0-32.0)
--- NOTE | 2020-07-05 10:09 | NUR ---
RESTING IN BED, NO DISTRESS NOTED, IV INFUSING, DRESSING TO R CHEST DRY AND INTACT, CONT TO MONITOR SUGARS
--- NOTE | 2020-07-05 11:01 | NUR ---
DRESSING CHANGED TO R CHEST, NO S/S OF INFECTION NOTED, REPACKED WITH GAUZE, REJI WELL
--- NOTE | 2020-07-05 17:37 | NUR ---
FIRST UNIT PRBC UP AT THIS TIME. VSS.
--- NOTE | 2020-07-05 17:57 | NUR ---
INFUSING 1 UNIT OF BLOOD, CONT TO MONITOR FOR S/S OF REACTION
--- NOTE | 2020-07-05 19:00 | NUR ---
RECEIVED REPORT, ASSUMED CARE, BREATHING EVEN UNLABORED, AT BEDSIDE, CALL LIGHT IN REACH, BED LOWEST POSITION, PRBC'S INFUSING, IV TO L HAND PATENT, NO S/S OF DISTRESS NOTED, 3L NC ON, DRESSING TO R CHEST CDI, DENIES NEEDS
--- NOTE | 2020-07-06 02:52 | NUR ---
I have reviewed this patient and I concur with the Shift Assessment completed by the Licensed Practical Nurse today this shift.
[2020-07-06 04:00] VITALS: BP 130/81
[2020-07-06 06:14] LABS: BASOPHILS 0.6 % (0-2); HEMATOCRIT 29.2 % (36.0-48.0); HEMOGLOBIN 9.1 g/dL (12-16); IMMATURE GRANULOCYTES 1.1 % (0-5); LYMPHOCYTES 25.1 % (15-50); MCH 27.1 pg (26.0-34.0); MCHC 31.2 g/dL (31.0-37.0); MCV 86.9 fL (80.0-100.0); MEAN PLATELET VOLUME 9.2 fL (7.4-10.4); NEUTROPHILS 58.2 % (40-80); PLATELET COUNT 351 10x3/uL (130-400); RBC 3.36 10x6/uL (4.00-5.40); RDW 15.4 % (11.5-14.5); WBC 6.4 10x3/uL (4.8-10.8)
[2020-07-06 06:36] LABS: ANION GAP 13.1 mmol/L (8-16); CALCIUM 8.9 mg/dL (8.5-10.1); CARBON DIOXIDE 25.6 mmol/L (21.0-32.0); CREATININE - SERUM 5.2 mg/dL (0.6-1.3); POTASSIUM - SERUM 3.7 mmol/L (3.5-5.1); VANCOMYCIN - RANDOM 17.5 ug/mL (10.0-20.0)
[2020-07-06 08:00] VITALS: BP 107/62
--- NOTE | 2020-07-06 08:19 | NUR ---
RESTING IN BED, NO DISTRESS NOTED, IV AT KVO, CONT TO MONITOR
--- NOTE | 2020-07-06 11:28 | NUR ---
DRESSING CHANGED TO R CHEST, REJI WELL, NO BLEEDING NOTED, SEROSANG DRAIAGE NOTED
[2020-07-06 12:16] VITALS: BP 116/81
[2020-07-06 15:00] VITALS: BP 136/65
[2020-07-06 20:00] VITALS: BP 151/95
--- NOTE | 2020-07-06 23:54 | NUR ---
RECEIVED REPORT, ASSUMED CARE, BREATHING EVEN UNLABORED, DENIES NEEDS, CALL LIGHT IN REACH, BED LOWEST POSITION, PRBC'S INFUSING, IV TO L HAND PATENT, NO S/S OF DISTRESS NOTED, 3L NC ON, DRESSING TO R CHEST CDI, DENIES NEEDS
--- NOTE | 2020-07-07 01:57 | NUR ---
I have reviewed this patient and I concur with the Shift Assessment completed by the Licensed Practical Nurse today this shift.
[2020-07-07 04:00] VITALS: BP 141/93
[2020-07-07 06:11] LABS: BASOPHILS 0.4 % (0-2); EOSINOPHILS 16.1 % (0-7); HEMATOCRIT 31.3 % (36.0-48.0); HEMOGLOBIN 9.9 g/dL (12-16); IMMATURE GRANULOCYTES 8.3 % (0-5); MCH 27.3 pg (26.0-34.0); MCHC 31.6 g/dL (31.0-37.0); MCV 86.5 fL (80.0-100.0); MEAN PLATELET VOLUME 9.1 fL (7.4-10.4); MONOCYTES 6.9 % (2-11); NEUTROPHILS 51.3 % (40-80); RBC 3.62 10x6/uL (4.00-5.40); RDW 15.3 % (11.5-14.5); WBC 7.9 10x3/uL (4.8-10.8)
[2020-07-07 06:20] LABS: PLATELET COUNT 446 10x3/uL (130-400)
[2020-07-07 06:35] LABS: ANION GAP 17.9 mmol/L (8-16); CALCIUM 9.1 mg/dL (8.5-10.1); CARBON DIOXIDE 25.2 mmol/L (21.0-32.0); CREATININE - SERUM 5.5 mg/dL (0.6-1.3); VANCOMYCIN - RANDOM 14.1 ug/mL (10.0-20.0)
[2020-07-07 06:36] LABS: POTASSIUM - SERUM 3.1 mmol/L (3.5-5.1)
[2020-07-07 08:13] VITALS: BP 120/73
--- NOTE | 2020-07-07 08:25 | NUR ---
ASSESSMENT PER FLOW SHEET. PATIENT IS WITHOUT DISTRESS.CALL LIGHT IN REACH
[2020-07-07 12:04] VITALS: BP 140/98
[2020-07-07 16:00] VITALS: BP 144/104
[2020-07-07 20:00] VITALS: BP 167/100
--- NOTE | 2020-07-07 20:48 | NUR ---
2000) REC'D.WALKING ROUNDS REQUESTING PAIN MEDS AND IV ATIVAN PULLED MAR UP EXPLAINED DILAUDID GIVEN AT 1931,ATIVAN [id number],NORCO 10 AT 1700. STATES I KNOW I HAD IT SOONER THAN THAT EXPLAINED MAR DOCUMENTATION OF MEDS GIVEN IS WHAT I HAVE TO GO BY.WILL CONTINUE TO MONITOR FOR ANY CHGES AND FOLLOW CURRENT PLAN OF CARE.
[2020-07-08 04:00] VITALS: BP 131/79
[2020-07-08 06:30] LABS: BASOPHILS 0.4 % (0-2); EOSINOPHILS 2.6 % (0-7); HEMATOCRIT 32.3 % (36.0-48.0); HEMOGLOBIN 10.2 g/dL (12-16); IMMATURE GRANULOCYTES 1.1 % (0-5); LYMPHOCYTES 26.7 % (15-50); MCH 27.5 pg (26.0-34.0); MCHC 31.6 g/dL (31.0-37.0); MCV 87.1 fL (80.0-100.0); MEAN PLATELET VOLUME 9.1 fL (7.4-10.4); MONOCYTES 11.1 % (2-11); NEUTROPHILS 58.1 % (40-80); PLATELET COUNT 477 10x3/uL (130-400); RBC 3.71 10x6/uL (4.00-5.40); RDW 15.2 % (11.5-14.5)
[2020-07-08 06:33] LABS: ANION GAP 16.1 mmol/L (8-16); CALCIUM 9.2 mg/dL (8.5-10.1); CARBON DIOXIDE 25.5 mmol/L (21.0-32.0); CREATININE - SERUM 5.1 mg/dL (0.6-1.3)
[2020-07-08 06:35] LABS: POTASSIUM - SERUM 3.6 mmol/L (3.5-5.1)
[2020-07-08 06:44] LABS: WBC 9.9 10x3/uL (4.8-10.8)
--- NOTE | 2020-07-08 07:30 | NUR ---
ASSESSMENT PER FLOW SHEET. PATIENT IS WITHOUT DISTRESS.CALL LIGHT IN REACH.
[2020-07-08 08:58] VITALS: BP 150/104
--- NOTE | 2020-07-08 09:49 | OP ---
PATIENT NAME: KAROLYN WILSON MEDICAL RECORD: [id number] :[birth year] LOCATION:D.[facility] ADMISSION DATE:06/29/20 SURGEON: JENN CARPIO MD DATE OF OPERATION: 07/01/2020 PREOPERATIVE DIAGNOSES: 1. Infected port. 2. Non-Hodgkin's lymphoma. 3. Sepsis. POSTOPERATIVE DIAGNOSES: 1. Infected port. 2. Non-Hodgkin's lymphoma. 3. Sepsis. PROCEDURE: 1. Excision of right subclavian vein port. 2. Removal of bilateral chest foreign bodies (dermal implants). SURGEON: Jenn Carpio MD REPORT OF PROCEDURE: The patient's chest was prepped and draped in sterile fashion. The patient had 2 dermal implants present, one on each side of the chest at the level of the clavicles. A small skin incision was made just lateral to these and both of these were easily extracted from the subcutaneous tissues. These wounds were irrigated out and left open. We then approached the patient's right subclavian vein port. The skin incision on top of this had some dehiscence. We were able to make a skin incision with a 15 blade through this and as we penetrated into the pocket, there was murky near purulent appearing material. Cultures were taken times 2. We eventually placed a pursestring around the catheter insertion site with a 3-0 Vicryl. This was tied down tightly as the catheter was removed. There was no sign of any active bleeding. The Prolene sutures were completely excised, we irrigated out the wound bed with peroxide and saline solution. We then reapproximated the subcutaneous tissues and closed the skin incision over its proximal 2/3 using a running 5-0 Monocryl. We then packed the wound with quarter-inch packing strips soaked in peroxide. The wounds were all dressed appropriately. COMPLICATIONS: None. CONDITION: Stable. ANESTHESIA: General endotracheal. BLOOD LOSS: Minimal. TRANSINT:[id number] Voice Confirmation ID: [id number] DOCUMENT ID: [id number] OPERATIVE REPORT [id number] KAROLYN WILSON JENN CARPIO MD at 0949 CC: ALEX ELLIOTT MD [id number] DICTATION DATE: 07/01/20 1536 TEMPLATE REPRODUCTION TECHNICIAN: 07/01/20 2309 ADM IN [facility] [address] [place] [address]
--- NOTE | 2020-07-08 10:06 | NUR ---
Pt has surgical wound located at right subclavian where port was removed on 07/01/20. Dr. Rivera has provided dressing change orders for daily dressing changes. Wound care will monitor as needed.
[2020-07-08 12:03] VITALS: BP 150/96
--- NOTE | 2020-07-08 15:26 | NUR ---
Nutrition follow-up: Pt remains in isolation Receiving a consistent CHO diet PO intake improved; ~75% average of last 3 meals Labs reviewed Wt: 258# Will continue to provide food choices and honor food preferences within diet restrictions. RDN following.
[2020-07-08 18:09] VITALS: BP 174/102
[2020-07-08 20:00] VITALS: BP 148/86
[2020-07-09 04:00] VITALS: BP 139/91
[2020-07-09 06:25] LABS: BASOPHILS 0.2 % (0-2); EOSINOPHILS 2.5 % (0-7); HEMATOCRIT 31.6 % (36.0-48.0); IMMATURE GRANULOCYTES 0.9 % (0-5); LYMPHOCYTES 21.9 % (15-50); MCH 27.3 pg (26.0-34.0); MCHC 31.6 g/dL (31.0-37.0); MCV 86.3 fL (80.0-100.0); MEAN PLATELET VOLUME 8.8 fL (7.4-10.4); MONOCYTES 9.2 % (2-11); NEUTROPHILS 65.3 % (40-80); PLATELET COUNT 420 10x3/uL (130-400); RBC 3.66 10x6/uL (4.00-5.40); RDW 14.8 % (11.5-14.5); WBC 10.2 10x3/uL (4.8-10.8)
[2020-07-09 06:41] LABS: APTT 31.7 SECONDS (22.8-39.4); INR 0.99 (0.85-1.17)
[2020-07-09 06:55] LABS: ANION GAP 14.8 mmol/L (8-16); CARBON DIOXIDE 26.7 mmol/L (21.0-32.0); CREATININE - SERUM 4.8 mg/dL (0.6-1.3); POTASSIUM - SERUM 3.5 mmol/L (3.5-5.1)
--- NOTE | 2020-07-09 09:02 | NUR ---
TAKEN TO SURGERY PER BED FOR CVL
[2020-07-09 09:21] VITALS: BP 152/100
--- NOTE | 2020-07-09 10:55 | NUR ---
RETURNED FROM LINE PLACEMENT, REMOVED NPO FROM DOOR, WILL PROVIDE AM MEDS
[2020-07-09 11:55] VITALS: BP 138/82
[2020-07-09 11:56] VITALS: BP 156/76
[2020-07-09 12:38] VITALS: BP 138/82
--- NOTE | 2020-07-09 12:49 | NUR ---
PT REFUSED POST OP VITALS, REMOVED BP CUFF AND STATED SHE WAS FINE
--- NOTE | 2020-07-09 16:55 | EC ---
PATIENT:KAROLYN WILSON DATE OF SERVICE: 06/29/20 SEX: F MEDICAL RECORD: [id number] DATE OF : [birth year] LOCATION:D.[facility] AGE OF PATIENT: 30 ADMISSION DATE: 06/29/20 REFERRING PHYSICIAN: INTERPRETING PHYSICIAN: VERO CASTRO MD ECHOCARDIOGRAM REPORT ECHO CHARGES 4 ECHO COMPLETE Date: 07/07/20 CLINICAL DIAGNOSIS: CHEMOTHERAPY ECHOCARDIOGRAPHIC MEASUREMENTS (adult normal given) AC root (d.<3.7cm) 3.1 cm LV Septum d (<1.2 cm> 1.2 cm Valve Excursion 1.9 cm LV Septum (systole) 1.5 cm Left Atria (s.<4.0cm> 3.5 cm LVPW d(<1.2cm) 0.8 cm RV (d.<2.3cm) 2.7 cm LVPW (sytole) 1.1 cm LV diastole(<5.6CM) 5.0 cm MV E-F(>70mm/sec) cm LV systole 3.9 cm LVOT Diameter 1.9 cm MV exc.(>10mm) 0.9 cm Est.ejection fraction (50-75%) % DOPPLER: LVIT cm/sec A 89 cm/sec E 118 cm/sec LA cm/sec RVSP 22 mmHg LVOT 81 cm/sec AOP1/2T m/s Asc. Ao 141 cm/sec RVOT 71 cm/sec RA cm/sec PA 86 cm/sec AV Gradient Peak 8.0 mmHg AV Mean 5.8 mmHg AV Area 1.3 cm MV Gradient Peak 6.8 mmHg MV Mean 3.4 mmHg MV Area cm COMMENTS: Veterans Service Representative: Molly GALLOWAY Cable Television Program Director: 3 Dr. Mckinney TAPE# PACS Pericardial Effusion N DATE OF SERVICE: Adequate 2D, color flow imaging, spectral Doppler, and M-Mode. No LVH. LV internal dimension is normal. Wall motion is normal. EF is greater than or equal to 55%. Aortic valve is tricuspid. No evidence of stenosis by Doppler interrogation. Left atrium is normal. Mitral valve shows no prolapse. Trivial MR. Right-sided chambers are grossly normal. Trivial TR. TRANSINT:[id number] Voice Confirmation ID: [id number] DOCUMENT ID: [id number] ECHOCARDIOGRAM REPORT [id number] PLEMMONS,KAROLYNVERO VAZQUEZ MD at 1655 CC: [id number] DICTATION DATE: 07/08/20829 CABLE SPLICING TECHNICIAN: 07/08/20 1103 ADM IN [place] [id number] [place] [id number]
[2020-07-09 17:46] VITALS: BP 164/91
[2020-07-10] VITALS (7 sets, daily range): BP systolic 131–158; BP diastolic 73–103
--- NOTE | 2020-07-10 17:16 | NUR ---
PATIENT IN BED. RESTING. DENIES NEEDS AT THIS TIME. BED LOW POSITION, CALL LIGHT IN REACH. FREE FROM SIGNS OF DISTRESS. WILL CONTINUE TO MONITOR.
[2020-07-11] VITALS: BP 126/75
[2020-07-11 04:00] VITALS: BP 149/91
[2020-07-11 06:40] LABS: BASOPHILS 0.6 % (0-2); EOSINOPHILS 2.1 % (0-7); HEMATOCRIT 30.8 % (36.0-48.0); HEMOGLOBIN 9.6 g/dL (12-16); IMMATURE GRANULOCYTES 0.5 % (0-5); LYMPHOCYTES 15.8 % (15-50); MCH 26.9 pg (26.0-34.0); MCHC 31.2 g/dL (31.0-37.0); MCV 86.3 fL (80.0-100.0); MEAN PLATELET VOLUME 8.7 fL (7.4-10.4); MONOCYTES 7.7 % (2-11); NEUTROPHILS 73.3 % (40-80); PLATELET COUNT 344 10x3/uL (130-400); RBC 3.57 10x6/uL (4.00-5.40); RDW 14.7 % (11.5-14.5)
[2020-07-11 07:06] LABS: ANION GAP 14.2 mmol/L (8-16); CALCIUM 8.9 mg/dL (8.5-10.1); CARBON DIOXIDE 26.4 mmol/L (21.0-32.0); CREATININE - SERUM 3.9 mg/dL (0.6-1.3); PHOSPHOROUS 6.2 mg/dL (2.5-4.9); POTASSIUM - SERUM 3.6 mmol/L (3.5-5.1)
[2020-07-11 09:03] VITALS: BP 152/95
--- NOTE | 2020-07-11 19:00 | NUR ---
BEDSIDE REPORT RECEIVED AND CARE OF PT ASSUMED. PT LYING IN LOW MURRAY'S POSITION WITH EYES CLOSED. RIGHT SC CENTRAL LINE SALINE LOCKED. WILL MONITOR FOR NEEDS. SPOUSE IS AT BEDSIDE.
--- NOTE | 2020-07-11 19:38 | NUR ---
GAVE DILAUDID AND ZOFRAN IVP PER PRN ORDER, PER PT REQUEST FOR PAIN AND NAUSEA. WILL MONITOR FOR EFFECTICENESS.
[2020-07-11 20:24] VITALS: BP 131/81
--- NOTE | 2020-07-11 20:35 | NUR ---
HS MEDICATIONS GIVEN TO INCLUDE NORCO PO PER REQUEST FOR BREAKTHROUGH PAIN. FSBS 192 THIS CHECK REQUIRING COVERAGE WITH 4 UNITS OF INSULIN PER SLIDING SCALE.
[2020-07-12 01:10] VITALS: BP 155/97
--- NOTE | 2020-07-12 04:52 | NUR ---
DENICE BLOOD FROM CENTRAL LINE FOR AM LABS AND DELIVERED TO RETAIL TRAINING MANAGER.
[2020-07-12 05:12] VITALS: BP 145/84
[2020-07-12 05:54] LABS: BASOPHILS 0.2 % (0-2); EOSINOPHILS 2.2 % (0-7); HEMATOCRIT 29.6 % (36.0-48.0); HEMOGLOBIN 9.2 g/dL (12-16); IMMATURE GRANULOCYTES 0.7 % (0-5); LYMPHOCYTES 17.4 % (15-50); MCH 26.7 pg (26.0-34.0); MCHC 31.1 g/dL (31.0-37.0); MEAN PLATELET VOLUME 9.1 fL (7.4-10.4); NEUTROPHILS 72.5 % (40-80); PLATELET COUNT 337 10x3/uL (130-400); RBC 3.44 10x6/uL (4.00-5.40); RDW 14.9 % (11.5-14.5); WBC 12.5 10x3/uL (4.8-10.8)
[2020-07-12 06:15] LABS: ANION GAP 16.9 mmol/L (8-16); CALCIUM 8.5 mg/dL (8.5-10.1); CARBON DIOXIDE 25.1 mmol/L (21.0-32.0); CREATININE - SERUM 3.5 mg/dL (0.6-1.3); PHOSPHOROUS 5.7 mg/dL (2.5-4.9)
[2020-07-12 08:00] VITALS: BP 129/70
[2020-07-12 12:14] VITALS: BP 131/79
[2020-07-12 16:00] VITALS: BP 146/94
[2020-07-12 16:24] LABS: BILIRUBIN NEGATIVE (NEGATIVE); KETONE NEGATIVE (NEGATIVE); NITRITE NEGATIVE (NEGATIVE); UROBILINOGEN NORMAL mg/dL (< 2)
[2020-07-12 16:25] LABS: BACTERIA FEW HPF (NONE SEEN); EPITHELIAL CELLS 0-5 /hpf (0-5)
--- NOTE | 2020-07-12 19:00 | NUR ---
BEDSIDE REPORT RECEIVED AND CARE OF PT ASSUMED. PT LYING IN LOW MURRAY'S POSITION WATCHING TV. RIGHT SC SALINE LOCKED. WILL MONITOR FOR NEEDS. SPOUSE IS AT BEDSIDE.
--- NOTE | 2020-07-12 20:00 | NUR ---
GAVE DILAUDID AND ZOFRAN IVP PER REQUEST FOR PAIN AND NAUSEA. WILL MONITOR FOR EFFECTIVENESS.
--- NOTE | 2020-07-12 21:31 | NUR ---
HS MEDICATIONS GIVEN. FSBS 237 THIS CHECK REQUIRING COVERAGE WITH 8 UNITS OF INSULIN PER SLIDING SCALE.
[2020-07-12 21:35] VITALS: BP 139/87
[2020-07-13 01:23] VITALS: BP 134/67
[2020-07-13 04:52] LABS: BASOPHILS 0.3 % (0-2); EOSINOPHILS 2.7 % (0-7); HEMATOCRIT 30.2 % (36.0-48.0); HEMOGLOBIN 9.6 g/dL (12-16); IMMATURE GRANULOCYTES 0.9 % (0-5); LYMPHOCYTES 21.2 % (15-50); MCH 27.4 pg (26.0-34.0); MCHC 31.8 g/dL (31.0-37.0); MEAN PLATELET VOLUME 9.1 fL (7.4-10.4); MONOCYTES 6.4 % (2-11); NEUTROPHILS 68.5 % (40-80); PLATELET COUNT 324 10x3/uL (130-400); RBC 3.51 10x6/uL (4.00-5.40); RDW 14.7 % (11.5-14.5); WBC 11.7 10x3/uL (4.8-10.8)
[2020-07-13 04:59] LABS: ANION GAP 15.5 mmol/L (8-16); CALCIUM 8.4 mg/dL (8.5-10.1); CARBON DIOXIDE 27.3 mmol/L (21.0-32.0); CREATININE - SERUM 3.1 mg/dL (0.6-1.3); PHOSPHOROUS 5.8 mg/dL (2.5-4.9); POTASSIUM - SERUM 3.8 mmol/L (3.5-5.1)
[2020-07-13 05:31] VITALS: BP 141/93
[2020-07-13 08:36] VITALS: BP 122/77
--- NOTE | 2020-07-13 09:00 | NUR ---
DRESING CHANGED TO RIGHT UPPER CHEST WITH SEROUS DRAINAGE NOTED. SURROUNDING SKIN W/O ANY S/S OF INFECTION. CVL DRESSING CHANGED USING ASEPTIC TECHNIQUE TO RIGHT UPPER CHEST. DILAUDID AND ZOFRAN GIVEN FOR PAIN MANAGEMENT AND EFFCTIVE. ENCOURAGED TO USE CALL LIGHT FOR ASSSIT.
[2020-07-13] MEDS ORDERED: OMNICEF300 MG PO (09:02)
[2020-07-13] MEDS ORDERED: DILAUDID2 MG PO (09:26)
--- NOTE | 2020-07-13 09:56 | NUR ---
OFFERED PT REFERRAL TO TOBACCO QUITLINE-SHE DECLINED. PER LUKE ROSS APN, PT IS NOT TO RECEIVE FLU SHOT AT THIS TIME.
[2020-07-13] MEDS ORDERED: NICODERM CQ1 EAC2 TOPICAL (09:58)
--- NOTE | 2020-07-13 10:05 | NUR ---
RX FOR OMNICEF CALLED TO [facility] IN [place], SPOKE WITH SAVANNAH, PHARMACIST.
--- NOTE | 2020-07-13 10:10 | MORECARE ---
CASE MANAGEMENT DISCHARGE SUMMARY PATIENT: KAROLYN WILSON UNIT: [id number] ADM DATE: 06/29/20 AGE: 30 : [birth year] SEX: F ROOM/BED: D.2213 AUTHOR: KEVIN CHESTER PHYSICIAN: REFERRING PHYSICIAN: ALEX ELLIOTT MD DATE OF SERVICE: 07/13/20 Discharge Plan Patient Name: KAROLYN WILSON Facility: [facility]:[place] : 1990 Planned Disposition: Home or Self Care Anticipated Discharge Date: Discharge Date: Expected LOS: Initial Reviewer: [email or web address] Initial Review Date: 06/29/2020 Generated: 07/13/20 11:09 am DCP- Discharge Planning Updated by [email or web address]: Pippa Monsalve on 07/01/20 11:[address] Patient Name: KAROLYN WILSON Admission Status: ER Accout number: [id number] Admission Date: 06-29-2020 : 1990 Admission Diagnosis:SEPSIS, UNSPECIFIED ORGANISM Attending: ALEX ELLIOTT Current LOS: 2 Anticipated DC Date: Planned Disposition: Home or Self Care Primary Insurance: MEDICAID [place] Discharge Planning Comments: CM met with patient to complete initial dc planning assessment. CM educated patient on the CM role and verbal consent given by patient to complete assessment. Patient lives at home with her spouse where she is independent with her care. At discharge patient plans to return home and feels this is a safe discharge. CM discussed availability of home health, rehab services, and medical equipment. She would like to be tested for O2 need prior to discharge. She will need a walk test. Patient denied known discharge needs at this time. CM will continue to follow and will assist as needed with dc plans/needs. Word Processor: Pippa Monsalve DCPIA - Discharge Planning Initial Assessment Updated by [email or web address]: Pippa Monsalve on 07/01/20 12:42 pm * Is the patient Alert and Oriented? Yes * How many steps to enter\exit or inside your home? * PCP KELSI ELLIS * [facility] * Preadmission Environment Home with Family * ADLs Independent * Equipment None * List name and contact numbers for known caregivers / representatives who currently or will assist patient after discharge: BRI JUAREZ [phone] * Verbal permission to speak to the caregivers and representatives has been obtained from the patient. N/A * Community resources currently utilized None * Additional services required to return to the preadmission environment? No * Can the patient safely return to the preadmission environment? Yes * Has this patient been hospitalized within the prior 30 days at any hospital? No External Providers External Provider: [facility] Next Contact Date: Service Request Date: Service Type: Resolution: Reviewer: Comments: Last DP export: 07/01/20 11:53 a Patient Name: KAROLYN WILSON Page [phone] at 1010 All edits/amendments must be made on the electronic document DICTATION DATE: 07/13/201008 MACHINE SOLE LEVELER: KARON 07/13/201008 RPT#: [id number] DC DATE: STATUS: ADM IN [facility] [address] [place] [address] END OF REPORT
--- NOTE | 2020-07-13 11:12 | MORECARE ---
CASE MANAGEMENT DISCHARGE SUMMARY PATIENT: KAROLYN WILSON UNIT: [id number] ADM DATE: 06/29/20 AGE: 30 : [birth year] SEX: F ROOM/BED: D.2213 AUTHOR: NEMO,DOC PHYSICIAN: REFERRING PHYSICIAN: ALEX ELLIOTT MD DATE OF SERVICE: 07/13/20 Discharge Plan Patient Name: KAROLYN WILSON Facility: [facility]:[place] : 1990 Planned Disposition: Home with Home Health Anticipated Discharge Date: Discharge Date: Expected LOS: Initial Reviewer: [email or web address] Initial Review Date: 06/29/2020 Generated: 07/13/20 12:12 pm Comments DCP- Discharge Planning Updated by [email or web address]: Uriel Hinojosa on 07/13/20 10:[address] Patient Name: KAROLYN WILSON Encounter No: [id number] : 1990 Primary Insurance: MEDICAID [place] Anticipated DC Date: Planned Disposition: Home with Home Health External Planned Provider: : DCP follow-up note: CM met with patient to complete DC plan and needs. CM educated patient on the CM role and verbal consent was given by patient to complete assessment. CM verified patient's address, phone number, and emergency contact phone numbers. Patient lives at home with her spouse, Adeline Wilson ([phone]). At discharge patient plans to return home and feels this is a safe discharge. The patient has 0 steps to navigate to enter the home and it is safe. CM discussed availability of home health, rehab services, and medical equipment. Patient declined SNF, IPR, and DME. Patient would like to try HHS with [facility] for right chest wound dressing changes and PICC line care. 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 Patient further expressed that she feels competent enough to flush and cap her PICC Line (No IV ABX at this time). Patient stated that HHS will be needed only for right chest wound dressing changes and PICC line dressing change. Spoke with [facility], Martita (weekend intake nurse) at [phone]. Martita stated that [facility] does not have the supplies for flushing PICC lines and other arrangements would have to be made. Patient stated that she will be able to flush and cap lines. Martita stated that [facility] would be able to change the PICC dressing and care for the right chest wound. Clinicals and HH consult was faxed to [facility]'s weekend fax number [phone]. Fax confirmation received and uploaded. The patient neither mentioned nor discussed other discharge needs and she is satisfied with DC plan. Transportation provider at discharge will be her spouse, Adeline. CM will continue to follow and will assist as needed with dc plans/needs. Uriel Hinojosa DCP- Discharge Planning Updated by [email or web address]: Pippa Monsalve on 07/01/20 11:[address] Patient Name: KAROLYN WILSON Admission Status: ER Accout number: [id number] Admission Date: 06-29-2020 : 1990 Admission Diagnosis:SEPSIS, UNSPECIFIED ORGANISM Attending: ALEX ELLIOTT Current LOS: 2 Anticipated DC Date: Planned Disposition: Home or Self Care Primary Insurance: MEDICAID [place] Discharge Planning Comments: CM met with patient to complete initial dc planning assessment. CM educated patient on the CM role and verbal consent given by patient to complete assessment. Patient lives at home with her spouse where she is independent with her care. At discharge patient plans to return home and feels this is a safe discharge. CM discussed availability of home health, rehab services, and medical equipment. She would like to be tested for O2 need prior to discharge. She will need a walk test. Patient denied known discharge needs at this time. CM will continue to follow and will assist as needed with dc plans/needs. Tie Tamper: Pippa Monsalve DCPIA - Discharge Planning Initial Assessment Updated by [email or web address]: Pippa Monsalve on 07/01/20 12:42 pm * Is the patient Alert and Oriented? Yes * How many steps to enter\exit or inside your home? * PCP KELSI ELLIS * [facility] * Preadmission Environment Home with Family * ADLs Independent * Equipment None * List name and contact numbers for known caregivers / representatives who currently or will assist patient after discharge: ADELINE JUAREZ [phone] * Verbal permission to speak to the caregivers and representatives has been obtained from the patient. N/A * Community resources currently utilized None * Additional services required to return to the preadmission environment? No * Can the patient safely return to the preadmission environment? Yes * Has this patient been hospitalized within the prior 30 days at any hospital? No Last DP export: 07/13/20 9:10 a Patient Name: KAROLYN WILSON Page [id number] at 1112 All edits/amendments must be made on the electronic document DICTATION DATE: 07/13/20 111 FIRE BOSS: KARON 07/13/20 1112 RPT#: [id number] DC DATE: STATUS: ADM IN [facility] [address] [place] [address] END OF REPORT
--- NOTE | 2020-07-13 11:27 | NUR ---
PATIENT VERBALIZED UNDERSTANDING OF DISCHARGE INSTRUCTIONS AND STABLE AT TIME OF DEPARTURE.
--- NOTE | 2020-07-14 09:10 | MORECARE ---
CASE MANAGEMENT DISCHARGE SUMMARY PATIENT: KAROLYN WILSON UNIT: [id number] ADM DATE: 06/29/20 AGE: 30 : [birth year] SEX: F ROOM/BED: D.2213 AUTHOR: NEMO,DOC PHYSICIAN: REFERRING PHYSICIAN: ALEX ELLIOTT MD DATE OF SERVICE: 07/14/20 Discharge Plan Patient Name: KAROLYN WILSON Facility: [facility]:[place] : 1990 Planned Disposition: Home with Home Health Anticipated Discharge Date: Discharge Date: 07/13/2020 Expected LOS: Initial Reviewer: [email or web address] Initial Review Date: 06/29/2020 Generated: 07/14/20 10:10 am Comments DCP- Discharge Planning Updated by [email or web address]: Uriel Micaela on 07/13/20 10:[address] Patient Name: KAROLYN WILSON Encounter No: [id number] : 1990 Primary Insurance: [place]ID [place] Anticipated DC Date: Planned Disposition: Home with Home Health External Planned Provider: : DCP follow-up note: CM met with patient to complete DC plan and needs. CM educated patient on the CM role and verbal consent was given by patient to complete assessment. CM verified patient's address, phone number, and emergency contact phone numbers. Patient lives at home with her spouse, Adeline Wilson ([phone]). At discharge patient plans to return home and feels this is a safe discharge. The patient has 0 steps to navigate to enter the home and it is safe. CM discussed availability of home health, rehab services, and medical equipment. Patient declined SNF, IPR, and DME. Patient would like to try HHS with [facility] for right chest wound dressing changes and PICC line care. 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 Patient further expressed that she feels competent enough to flush and cap her PICC Line (No IV ABX at this time). Patient stated that HHS will be needed only for right chest wound dressing changes and PICC line dressing change. Spoke with [facility], Martita (weekend intake nurse) at [phone]. Martita stated that [facility] does not have the supplies for flushing PICC lines and other arrangements would have to be made. Patient stated that she will be able to flush and cap lines. Martita stated that [facility] would be able to change the PICC dressing and care for the right chest wound. Clinicals and HH consult was faxed to [facility]'s weekend fax number [phone]. Fax confirmation received and uploaded. The patient neither mentioned nor discussed other discharge needs and she is satisfied with DC plan. Transportation provider at discharge will be her spouse, Adeline. CM will continue to follow and will assist as needed with dc plans/needs. Uriel Hinojosa DCP- Discharge Planning Updated by [email or web address]: Pippa Monsalve on 07/01/20 11:[address] Patient Name: KAROLYN WILSON Admission Status: Accout number: [id number] Admission Date: 06-29-2020 : 1990 Admission Diagnosis:SEPSIS, UNSPECIFIED ORGANISM Attending: ALEX ELLIOTT Current LOS: 2 Anticipated DC Date: Planned Disposition: Home or Self Care Primary Insurance: [place] Discharge Planning Comments: CM met with patient to complete initial dc planning assessment. CM educated patient on the CM role and verbal consent given by patient to complete assessment. Patient lives at home with her spouse where she is independent with her care. At discharge patient plans to return home and feels this is a safe discharge. CM discussed availability of home health, rehab services, and medical equipment. She would like to be tested for O2 need prior to discharge. She will need a walk test. Patient denied known discharge needs at this time. CM will continue to follow and will assist as needed with dc plans/needs. Clinical Research Director: Pippa Monsalve DCPIA - Discharge Planning Initial Assessment Updated by [email or web address]: Pippa Monsalve on 07/01/20 12:42 pm * Is the patient Alert and Oriented? Yes * How many steps to enter\exit or inside your home? * PCP KELSI ELLIS * [facility] * Preadmission Environment Home with Family * ADLs Independent * Equipment None * List name and contact numbers for known caregivers / representatives who currently or will assist patient after discharge: ADELINE JUAREZ [phone] * Verbal permission to speak to the caregivers and representatives has been obtained from the patient. N/A * Community resources currently utilized None * Additional services required to return to the preadmission environment? No * Can the patient safely return to the preadmission environment? Yes * Has this patient been hospitalized within the prior 30 days at any hospital? No Last DP export: 07/13/20 10:12 a Patient Name: KAROLYN WILSON Page [id number] at 0910 All edits/amendments must be made on the electronic document DICTATION DATE: 07/14/20909 BENCH JEWELER: KARON 07/14/20909 RPT#: [id number] DC DATE:07/13/20 STATUS: DIS IN [facility] [address] [place] [address] END OF REPORT
== END 2020-07-13 11:28 | disposition home health service (06) | DRG 314 ==
LOC: D.ER 12:05 → D.MS 14:17 → D.EDHOLD 14:17 → D.MS 15:11
PROVIDERS: Emergency Medicine; Family Medicine; General Practice; Internal Medicine; Internal Medicine Nephrology; ADMIT Legal Medicine; ATTEND Legal Medicine
PROC: 0JPT0WZ Removal of Totally Implantable Vascular Access Device from Trunk Subcutaneous Tissue and Fascia, Open Approach (ICD-10-PCS; 2020-07-01)
PROC: 05HY33Z Insertion of Infusion Device into Upper Vein, Percutaneous Approach (ICD-10-PCS; 2020-07-07)
PROC: 05HM33Z Insertion of Infusion Device into Right Internal Jugular Vein, Percutaneous Approach (ICD-10-PCS; 2020-07-09)
PROC: 0JH63XZ Insertion of Tunneled Vascular Access Device into Chest Subcutaneous Tissue and Fascia, Percutaneous Approach (ICD-10-PCS; principal; 2020-07-09 09:18)
DX: T80.219A Unspecified infection due to central venous catheter, initial encounter (principal); N17.0 Acute kidney failure with tubular necrosis; A41.01 Sepsis due to Methicillin susceptible Staphylococcus aureus; C85.90 Non-Hodgkin lymphoma, unspecified, unspecified site; E87.1 Hypo-osmolality and hyponatremia; L03.313 Cellulitis of chest wall; E87.2 Acidosis; D47.3 Essential (hemorrhagic) thrombocythemia; F41.9 Anxiety disorder, unspecified; E87.6 Hypokalemia; T36.8X1A Poisoning by other systemic antibiotics, accidental (unintentional), initial encounter

== ENCOUNTER 2020-07-14 16:01 | Outpatient (CLI) | payer MEDICAID ==
[~2020-07-14] VITALS: Ht 162.6 cm; Wt 119.1 kg
[~2020-07-14 16:01] MED LIST changes: +ALDACTONE50 MG PO; +DILAUDID2 MG PO; +FUROSEMIDE20 MG PO; +NICODERM CQ1 EAC2 TOPICAL; +OMNICEF300 MG PO; +TRAZODONE HCL50 MG PO; +ZOFRAN8 MG PO
--- NOTE | 2020-07-14 16:39 | NUR ---
RIGHT SUBCLAVIAN CENTRAL LINE REMOVED AFTER SUTURES REMOVED. TIP INTACT. PRESSURE HELD FOR 8 MINUTES. PATIENT ADVISED TO REMAIN IN BED FOR AT LEAST 15 MINUTES
[2020-07-14 16:58] VITALS: Ht 162.6 cm; Wt 119.1 kg
--- NOTE | 2020-07-14 17:15 | NUR ---
PATIENT HAS NO SIGNS OF COMPLICATIONS FROM CENTRA LINE REMOVAL. PATIENT DC'D HOME VIA WHEELCHAIR TO PRIVATE VEHICLE WITH SPOUSE
== END 2020-07-14 17:15 | disposition home or self-care (01) ==
LOC: D.OPS 16:01
PROVIDERS: ATTEND Legal Medicine
DX: C81.92 Hodgkin lymphoma, unspecified, intrathoracic lymph nodes (principal)

== ENCOUNTER 2020-07-29 06:55 | Day surgery (SDC) | payer MEDICAID ==
[~2020-07-29] VITALS: Ht 162.6 cm; Wt 112.0 kg
--- NOTE | ~2020-07-29 | OP ---
PATIENT NAME: KAROLYN WILSON MEDICAL RECORD: [id number] :[birth year] LOCATION:D.OPS ADMISSION DATE: SURGEON: JENN CARPIO MD DATE OF OPERATION: 07/29/2020 PREOPERATIVE DIAGNOSES: 1. Non-Hodgkin's lymphoma. 2. Hypertension. 3. Hypercholesterolemia. 4. Diabetes mellitus. 5. Tobacco dependence syndrome. POSTOPERATIVE DIAGNOSES: 1. Non-Hodgkin's lymphoma. 2. Hypertension. 3. Hypercholesterolemia. 4. Diabetes mellitus. 5. Tobacco dependence syndrome. PROCEDURE: 1. Left subclavian vein PowerPort placement. 2. Fluoroscopic interpretation. SURGEON: Jenn Carpio MD DESCRIPTION OF PROCEDURE: The patient's left chest was prepped and draped in sterile fashion. A needle was used to cannulate the left subclavian vein and a guidewire was advanced with ease. Fluoroscopy was used to note that the wire was in good position in the venous system. A skin incision was made on the left superior lateral chest and the subcutaneous pouch was made over the pectoral fascia. The catheter was tunneled between this pouch and the wire exit site. We then sutured the port to the pectoral fascia with interrupted 4-0 Prolenes times 2. The catheter was cut with a beveled tip at 30 cm. The dilator trocar device was placed over the wire and the wire and dilator were removed. The catheter tip was advanced through the trocar until it rested in good position at the right atrial superior vena caval junction. The catheter aspirated nonpulsatile dark blood and flushed easily with heparinized saline. The subcutaneous tissues were then reapproximated with interrupted 3-0 Vicryl and the skin was closed with running subcuticular 5-0 Monocryl. COMPLICATIONS: None. CONDITION: Stable. ANESTHESIA: General endotracheal and local. BLOOD LOSS: Minimal. TRANSINT:[id number] Voice Confirmation ID: [id number] DOCUMENT ID: [id number] OPERATIVE REPORT [id number] KAROLYN WILSNO JENN CARPIO MD CC: ALEX ELLIOTT MD [id number] DICTATION DATE: 07/29/20 1240 PULLBOAT ENGINEER: 07/29/20 2159 [facility] 07/29/20 [address] [place] [address]
[~2020-07-29 06:55] MED LIST changes: +MULTI-DAY VITAM1 TAB PO
[2020-07-29 07:12] LABS: BASOPHILS 0.4 % (0-2); EOSINOPHILS 3.4 % (0-7); HEMATOCRIT 34.5 % (36.0-48.0); HEMOGLOBIN 10.9 g/dL (12-16); IMMATURE GRANULOCYTES 0.2 % (0-5); LYMPHOCYTES 25.1 % (15-50); MCH 27.3 pg (26.0-34.0); MCHC 31.6 g/dL (31.0-37.0); MCV 86.5 fL (80.0-100.0); MONOCYTES 4.9 % (2-11); RBC 3.99 10x6/uL (4.00-5.40); RDW 16.7 % (11.5-14.5); WBC 11.3 10x3/uL (4.8-10.8)
[2020-07-29 07:13] LABS: PLATELET COUNT 251 10x3/uL (130-400)
[2020-07-29 07:19] LABS: CALC OSMOLALITY 281 mosm/kg (275-300); CALCIUM 9.7 mg/dL (8.5-10.1); CARBON DIOXIDE 25.5 mmol/L (21.0-32.0); CHLORIDE - SERUM 100 mmol/L (98-107); CREATININE - SERUM 0.9 mg/dL (0.6-1.3); POTASSIUM - SERUM 4.3 mmol/L (3.5-5.1); SODIUM 136 mmol/L (136-145); UREA NITROGEN 25 mg/dL (7-18); eGFR NON AFRICAN AMERICAN 78 mL/min (90-120)
[2020-07-29 07:22] LABS: GLUCOSE 198 mg/dL (74-106)
[2020-07-29 07:39] LABS: APTT 30.4 SECONDS (22.8-39.4); INR 0.88 (0.85-1.17); PROTIME 11.9 SECONDS (11.6-15.0)
[2020-07-29 08:11] VITALS: BP 110/67; Ht 162.6 cm; Wt 112.0 kg
[2020-07-29 08:18] LABS: HCG SERUM NEGATIVE (NEGATIVE)
--- NOTE | 2020-07-29 13:04 | NUR ---
PATIENT STATES PAIN 7.10 ON L CHEST FROM PORT. STATED SHE DOES HAVE CHRONIC BACK PAIN. EDUCATED ON PAIN TREATMENT AFTER SURGERY.
== END 2020-07-29 14:25 | disposition home or self-care (01) ==
LOC: D.OPS 06:55
PROVIDERS: Anesthesiology; ATTEND Surgery
DX: C81.92 Hodgkin lymphoma, unspecified, intrathoracic lymph nodes (principal); I10 Essential (primary) hypertension; E78.00 Pure hypercholesterolemia, unspecified; E11.9 Type 2 diabetes mellitus without complications; F17.200 Nicotine dependence, unspecified, uncomplicated; K21.9 Gastro-esophageal reflux disease without esophagitis; T81.40XD Infection following a procedure, unspecified, subsequent encounter

== ENCOUNTER 2020-12-30 23:32 | Inpatient (IN) | payer MEDICAID ==
[~2020-12-30] VITALS: Ht 162.6 cm; Wt 106.6 kg
[~2020-12-30 23:32] MED LIST changes: +MACROBID100 MG PO
[2020-12-31 00:39] LABS: BASOPHILS 0.4 % (0-2); EOSINOPHILS 2.5 % (0-7); HEMATOCRIT 37.3 % (36.0-48.0); HEMOGLOBIN 13.7 g/dL (12-16); IMMATURE GRANULOCYTES 0.3 % (0-5); MCH 30.6 pg (26.0-34.0); MCHC 36.7 g/dL (31.0-37.0); MCV 83.4 fL (80.0-100.0); MEAN PLATELET VOLUME 9.1 fL (7.4-10.4); MONOCYTES 9.4 % (2-11); NEUTROPHIL ABS# 5.71 10x3/uL (1.56-6.13); NEUTROPHILS 80.4 % (40-80); RBC 4.47 10x6/uL (4.00-5.40); RDW 16.6 % (11.5-14.5); WBC 7.1 10x3/uL (4.8-10.8)
[2020-12-31 00:48] LABS: PLATELET COUNT 335 10x3/uL (130-400)
[2020-12-31 01:51] LABS: CALC OSMOLALITY 274 mosm/kg (275-300); CHLORIDE - SERUM 91 mmol/L (98-107); CREATININE - SERUM 0.5 mg/dL (0.6-1.3); GLUCOSE 371 mg/dL (74-106); LIPASE 79 U/L (73-393); MAGNESIUM - SERUM 1.3 mg/dL (1.8-2.4); POTASSIUM - SERUM 2.9 mmol/L (3.5-5.1); SODIUM 130 mmol/L (136-145); UREA NITROGEN 11 mg/dL (7-18); eGFR NON AFRICAN AMERICAN > 90 mL/min (90-120)
[2020-12-31 01:52] LABS: ALBUMIN 3.6 g/dL (3.4-5.0); ALKALINE PHOSPHATASE 103 U/L (30-120); ALT (SGPT) 23 U/L (10-68); BILIRUBIN - TOTAL 0.24 mg/dL (0.2-1.3); CALCIUM 7.9 mg/dL (8.5-10.1); PRO BNP 98.4 pg/mL (0-125); PROTEIN - SERUM 5.9 g/dL (6.4-8.2)
[2020-12-31 04:00] VITALS: BP 143/89
[2020-12-31] MEDS ORDERED: PHENERGAN25 M1 PO (04:35)
[2020-12-31 04:42] VITALS: BP 143/89; BMI 40.4
--- NOTE | 2020-12-31 05:00 | NUR ---
PT BROUGHT TO FLOOR VIA STRETCHER. AMBULATED TO BED. PT STATES SHE CONTINUES TO HURT AND IS NAUSEOUS AFTER MORPHINE/ZOFRAN IN ER. STATES SHE BELIEVES THE MORPHINE MADE HER MORE NAUSEOUS. PT HAS NO PRN MEDS ORDERED AT THIS TIME. PT ALSO REQUESTED IV MEDICATION FOR ANXIETY BECAUSE SHE CANNOT TOLERATE HER PO KLONOPIN. CALLED DR ELLIOTT AND RECIEVED ORDER FOR DILAUDID, ATIVAN, AND ZOFRAN. GAVE PT DILAUDID AND ZOFRAN FOR GENERALIZED PAIN 05/19. DENIES OTHER NEEDS AT THIS TIME. CL IN REACH
--- NOTE | 2020-12-31 06:05 | NUR ---
GAVE PT ATIVAN FOR ANXIETY, DENIES OTHER NEEDS. CL IN REACH
[2020-12-31 09:10] VITALS: BP 125/74
--- NOTE | 2020-12-31 10:04 | NUR ---
I have reviewed this patient and I concur with the Shift Assessment completed by the Licensed Practical Nurse today this shift.
[2020-12-31 11:43] LABS: BILIRUBIN NEGATIVE (NEGATIVE); KETONE NEGATIVE (NEGATIVE); NITRITE NEGATIVE (NEGATIVE); UROBILINOGEN NORMAL mg/dL (< 2)
--- NOTE | 2020-12-31 12:08 | NUR ---
PT REQUESTED TO HAVE PAIN MEDICATION SCANNED BOTH PAIN AND NAUSEA MEDICATION AND NOTICED BOTH ARE AN HOURLY TOO EARLY DID NOT ADMINISTER TOLD PATIENT SHE STILL HAD AN HOUR FOR BOTH. CONTINUE WITH PLAN OF CARE
[2020-12-31 12:35] VITALS: BP 125/73
[2020-12-31 13:03] VITALS: BMI 40.3
--- NOTE | 2020-12-31 13:21 | NUR ---
PATIENT C/O BEING VERY HOT, PATIENT TEMP IS 97.8, ADMINISTERED TYLENOL 45MIN AGO. PATIENT HAS ICE PACKS UNDER BOTH ARMS AND REQUESTED ATIVAN, INFORMED PATIENT SHE STILL HAD ANOTHER 30 MINS BEFORE I CAN ADMINISTER. NO OTHER NEEDS AT THIS TIME. CONTINUE WITH PLAN OF CARE
[2020-12-31] MEDS ORDERED: CLEOCIN HCL300 MG PO (15:37)
[2020-12-31] MEDS ORDERED: HYDROCODON-ACE1 EAC7 PO (15:38)
[2020-12-31 16:44] VITALS: BP 115/72
[2020-12-31 20:00] VITALS: BP 107/61
--- NOTE | 2020-12-31 20:00 | NUR ---
ALERT RESTING IN BED C/O NAUSEA AND PAIN WANTING TO KNOW WHEN PAIN MEDS DUE AGAIN, SEE SHIFT ASSESSMENT CALL LIGHT IN REACH
[2020-12-31 23:03] VITALS: Ht 162.6 cm; Wt 106.6 kg
[2021-01-01] VITALS (9 sets, daily range): BP systolic 93–124; BP diastolic 48–79
--- NOTE | 2021-01-01 07:00 | NUR ---
PT IS SITTING IN BED WITH EYES OPEN. RESPIRATIONS ARE EVEN AND UNLABORED. PT IS AAO X 4 AND ANSWERS ALL QUESTIONS APPROPRIATELY. PT DENIES PRESENCE OF DYSPNEA/SOB AT THIS TIME. PT DENIES PRESENCE OF N/V AT THIS TIME. PT REPORTS PAIN GENERALIZED BUT DENIES NEEDS FOR PAIN MEDICATION AT THIS TIME. PIV TO RIGHT FA INFUSING PER ORDER WITHOUT DIFFICULTY. PT SO AT BEDSIDE. PT REPORTS A LEFT CHEST PORT BUT PORT NOT SEEN OR PALPABLE. PT STATES THAT SHE LAST RECEIVED CHEMO "2 WEEKS AGO YESTERDAY". BED IS IN THE LOWEST POSITION. CALL LIGHT AND BEDSIDE TABLE ARE WITHIN REACH. SIDE RAILS X 2. PT AND PT SO DENY FURTHER NEEDS. INCENTIVE SPIROMETER AT BEDSIDE AND ENCOURAGED. WILL CONT TO MONITOR.
[2021-01-01 07:01] LABS: BASOPHILS 0.4 % (0-2); EOSINOPHILS 2.9 % (0-7); HEMATOCRIT 31.5 % (36.0-48.0); IMMATURE GRANULOCYTES 0.4 % (0-5); LYMPHOCYTE ABS# 1.03 10x3/uL (1.18-3.74); LYMPHOCYTES 19.6 % (15-50); MCH 28.6 pg (26.0-34.0); MCHC 33.7 g/dL (31.0-37.0); MCV 85.1 fL (80.0-100.0); MEAN PLATELET VOLUME 9.2 fL (7.4-10.4); MONOCYTES 11.4 % (2-11); NEUTROPHIL ABS# 3.43 10x3/uL (1.56-6.13); NEUTROPHILS 65.3 % (40-80); RDW 17.2 % (11.5-14.5)
[2021-01-01 07:09] LABS: HEMOGLOBIN 10.6 g/dL (12-16); PLATELET COUNT 248 10x3/uL (130-400); WBC 5.3 10x3/uL (4.8-10.8)
[2021-01-01 07:58] LABS: ALBUMIN 2.5 g/dL (3.4-5.0); ALKALINE PHOSPHATASE 74 U/L (30-120); BILIRUBIN - TOTAL 0.16 mg/dL (0.2-1.3); PROTEIN - SERUM 4.3 g/dL (6.4-8.2)
[2021-01-01 08:00] LABS: CREATININE - SERUM 0.4 mg/dL (0.6-1.3); GLUCOSE 382 mg/dL (74-106); MAGNESIUM - SERUM 1.5 mg/dL (1.8-2.4); UREA NITROGEN 4 mg/dL (7-18); eGFR NON AFRICAN AMERICAN > 90 mL/min (90-120)
[2021-01-01 08:01] LABS: CALC OSMOLALITY 265 mosm/kg (275-300); CARBON DIOXIDE 16.6 mmol/L (21.0-32.0); CHLORIDE - SERUM 91 mmol/L (98-107); POTASSIUM - SERUM 3.4 mmol/L (3.5-5.1); SODIUM 126 mmol/L (136-145)
[2021-01-01 08:02] LABS: CALCIUM 7.2 mg/dL (8.5-10.1)
[2021-01-01 08:03] LABS: ALT (SGPT) 37 U/L (10-68)
--- NOTE | 2021-01-01 10:11 | NUR ---
PT REQUESTING PRN PAIN MEDICATION. PT WITH HYPOTENSION. SEE FLOWSHEET. PT EDUCATED ON PAIN MEDICATION AND BP. PT VERBALIZES UNDERSTANDING AND DENIES FURTHER NEEDS. AT BEDSIDE. BED IS IN THE LOWEST POSITION. CALL LIGHT AND BEDSIDE TABLE ARE WITHIN REACH. SIDE RAILS X 2. WILL CONT TO MONITOR.
--- NOTE | 2021-01-01 12:53 | NUR ---
PT NOTIFIES AMIE THAT PT HAVE BEEN EATING CHIC-YANNICK-A THAT SIGNIFICANT OTHER BRINGS IN. PT INFORMED OF FULL LIQUID DIET AND PT STATES "I CANT EAT THAT STUFF" AND SO STATES "IM NOT JUST GOING TO WATCH HER NOT EAT". PT DENIES EMESIS SINCE "ABOUT 5 OCLOCK YESTERDAY MORNING". PT INFORMED OF NEED TO REMAIN ON FULL LIQUID DIET ORDERED UNTIL AFTER GI CONSULT. PT VERBALIZES UNDERSTANDING AND DENIES FURTHER QUESTIONS/CONCERNS/NEEDS AT THIS TIME. BED IS IN THE LOWEST POSITION. CALL LIGHT AND BEDSIDE TABLE ARE WITHIN REACH. SIDE RAILS X 2. WILL CONT TO MONITOR.
--- NOTE | 2021-01-01 20:00 | NUR ---
UP IN ROOM HAS JUST FINISHED WITH SHOWER, DENIES N/V, CONTINUES TO C/O ABD PAIN AND ANXIETY, SEE SHIFT ASSESMENT, CALL LIGHT IN REACH
[2021-01-02] VITALS: BP 90/58
[2021-01-02 02:52] VITALS: BP 94/49
--- NOTE | 2021-01-02 08:11 | NUR ---
I have reviewed this patient and I concur with the Shift Assessment completed by the Licensed Practical Nurse today this shift.
[2021-01-02 09:33] VITALS: BP 121/76
--- NOTE | 2021-01-02 09:57 | NUR ---
PATIENT BP IN GOOD RANGE AND PATIENT REQUESTED PAIN MEDICATION, INFORMED PATIENT I AM UNABLE TO ADMINISTER NARCOTICS UNTIL AFTER HER SCAN. SPOUSE AT [facility], NO OTHER NEEDS AT THIS TIME. CONTINUE WITH PLAN OF CARE
[2021-01-02 17:47] VITALS: BP 123/76
[2021-01-02 18:10] LABS: BASOPHILS 0.6 % (0-2); EOSINOPHILS 4.5 % (0-7); HEMATOCRIT 30.6 % (36.0-48.0); HEMOGLOBIN 9.7 g/dL (12-16); IMMATURE GRANULOCYTES 0.7 % (0-5); LYMPHOCYTES 19.4 % (15-50); MCH 27.4 pg (26.0-34.0); MCHC 31.7 g/dL (31.0-37.0); MCV 86.4 fL (80.0-100.0); MEAN PLATELET VOLUME 8.8 fL (7.4-10.4); MONOCYTES 9.3 % (2-11); NEUTROPHIL ABS# 4.38 10x3/uL (1.56-6.13); NEUTROPHILS 65.5 % (40-80); PLATELET COUNT 259 10x3/uL (130-400); RBC 3.54 10x6/uL (4.00-5.40)
[2021-01-02 18:16] LABS: WBC 6.7 10x3/uL (4.8-10.8)
[2021-01-02 18:30] LABS: ALBUMIN 2.7 g/dL (3.4-5.0); ALKALINE PHOSPHATASE 128 U/L (30-120); BILIRUBIN - TOTAL 0.32 mg/dL (0.2-1.3); CALC OSMOLALITY 269 mosm/kg (275-300); CHLORIDE - SERUM 97 mmol/L (98-107); GLUCOSE 342 mg/dL (74-106); POTASSIUM - SERUM 3.8 mmol/L (3.5-5.1); SODIUM 129 mmol/L (136-145); UREA NITROGEN 5 mg/dL (7-18)
[2021-01-02 18:34] LABS: ALT (SGPT) 67 U/L (10-68); CARBON DIOXIDE 22.1 mmol/L (21.0-32.0); CREATININE - SERUM 0.6 mg/dL (0.6-1.3); PROTEIN - SERUM 6.1 g/dL (6.4-8.2); eGFR NON AFRICAN AMERICAN > 90 mL/min (90-120)
[2021-01-02 20:13] VITALS: BP 116/82; BP 165/76
--- NOTE | 2021-01-03 03:00 | NUR ---
I have reviewed this patient and I concur with the Shift Assessment completed by the Licensed Practical Nurse today this shift.
[2021-01-03 04:00] VITALS: BP 121/78
[2021-01-03 06:06] LABS: BASOPHILS 0.5 % (0-2); EOSINOPHILS 4.5 % (0-7); HEMATOCRIT 29.6 % (36.0-48.0); HEMOGLOBIN 9.3 g/dL (12-16); IMMATURE GRANULOCYTES 0.8 % (0-5); LYMPHOCYTE ABS# 1.69 10x3/uL (1.18-3.74); MCHC 31.4 g/dL (31.0-37.0); MONOCYTES 7.5 % (2-11); NEUTROPHIL ABS# 3.95 10x3/uL (1.56-6.13); NEUTROPHILS 60.7 % (40-80); PLATELET COUNT 246 10x3/uL (130-400); RBC 3.44 10x6/uL (4.00-5.40); RDW 17.5 % (11.5-14.5); WBC 6.5 10x3/uL (4.8-10.8)
[2021-01-03 06:26] LABS: ALBUMIN 2.4 g/dL (3.4-5.0); ALKALINE PHOSPHATASE 112 U/L (30-120); BILIRUBIN - TOTAL 0.23 mg/dL (0.2-1.3); CARBON DIOXIDE 22.3 mmol/L (21.0-32.0); CHLORIDE - SERUM 101 mmol/L (98-107); CREATININE - SERUM 0.5 mg/dL (0.6-1.3); POTASSIUM - SERUM 3.5 mmol/L (3.5-5.1); PROTEIN - SERUM 5.8 g/dL (6.4-8.2); SODIUM 133 mmol/L (136-145); eGFR NON AFRICAN AMERICAN > 90 mL/min (90-120)
[2021-01-03 06:28] LABS: ALT (SGPT) 56 U/L (10-68); CALC OSMOLALITY 271 mosm/kg (275-300); MAGNESIUM - SERUM 1.3 mg/dL (1.8-2.4); UREA NITROGEN 3 mg/dL (7-18)
[2021-01-03 07:15] LABS: GLUCOSE 255 mg/dL (74-106)
--- NOTE | 2021-01-03 07:51 | NUR ---
PT SITTING UP IN BED WATCHING TV, ALERT AND ORIENTED. REPORTS FEELING ANXIOUS, ADMINISTERED ATIVAN PER ORDERS. IV LOCATED TO RIGHT HAND CURRENTLY RUNNING NS @ 150, DENIES ANY FURTHER NEEDS, WILL CONT TO MONITOR.
[2021-01-03 08:36] VITALS: BP 101/62
--- NOTE | 2021-01-03 11:57 | NUR ---
Nutrition Consult: Diabetes Education Met with patient this am. Patient stated her appetite has been poor lately due to pain and chemotherapy side effects. Educated patient on Type 2 DM and provided handouts on carb counting, healthy activity levels, checking blood sugar, diabetic meal planning, and side effects of uncontrolled blood sugar levels. Patient verbalized understanding of material. Patient stated she struggles with controling her DM at home due to food being a comfort for her during stress and stated that she wants to make a positive change to her diet. POC Glucose Levels: 238, 271, 254, 334, 244, 189 RD to follow up on 01/05
[2021-01-03 12:39] VITALS: BP 101/57
--- NOTE | 2021-01-03 13:20 | NUR ---
ADMINISTERED PRN DILAUDID FOR 8/10 AND ZOFRAN. RESTING UPRIGHT IN BED. DENIES ANY NEEDS AT THIS TIME. BED IN LOWEST POSITION, BED RAILS X2, CALL LIGHT WITHIN REACH. WILL CONTINUE POC.
--- NOTE | 2021-01-03 14:40 | NUR ---
ADMINISTERED MEDICATION, TOLERATED WELL. REQUESTING TO SKIP KLONIPIN AND GET ATIVAN INSTEAD. WILL CHECK BLOOD PRESSURE FIRST. FAMILY AT BEDSIDE. DENIES ANY OTHER NEEDS AT THIS TIME. WILL CONTINUE POC.
--- NOTE | 2021-01-03 14:50 | NUR ---
PRN ATIVAN FOR ANXIETY, TOLERATED WELL. RESTING COMFORTABLY. FAMILY AT BEDSID.E DENIES FURTHER NEEDS. WILL CONTINUE POC.
--- NOTE | 2021-01-03 15:07 | NUR ---
PRN TYLENOL FOR HEADACHE. NO DIFFICULTIES. RESTING IN BED. WILL CONTINUE POC.
--- NOTE | 2021-01-03 16:48 | NUR ---
ADMINISTERED PROTONIX AND PRN BENADRYL. UPRIGHT IN BED EATING DINNER. DENIES ANY FURTHER NEEDS AT THIS TIME. WILL CONTINUE POC.
[2021-01-03 16:51] VITALS: BP 129/79
--- NOTE | 2021-01-03 17:26 | NUR ---
ADMINISTERED PRN DILAUDID AND ZOFRAN. TOLERATED WELL. RESTING COMFORTABLY IN BED. DENIES FURTHER NEEDS AT THIS TIME. WILL CONTINUE POC
--- NOTE | 2021-01-03 18:08 | NUR ---
8 UNITS INSULIN PER SLIDING SCALE FOR SUGAR OF 173. RESTING IN BED, DENIES ANY NEEDS. WILL CONTINUE POC.
--- NOTE | 2021-01-03 19:08 | NUR ---
PATIENT RESTING IN BED WITH NO S/S OF DISTRESS. DISCUSSED PATIENT'S NIGHT MEDS PER HER REQUEST. PATIENT DENIES OTHER NEEDS. ENCOURAGED PATIENT TO CALL WITH NEEDS.
[2021-01-03 20:15] VITALS: BP 148/92
[2021-01-04 00:46] VITALS: BP 95/47
[2021-01-04 04:00] VITALS: BP 97/55
--- NOTE | 2021-01-04 08:05 | NUR ---
RESTING QUIETLY WITH EYES CLOSED. RESPIRATIONS EVEN AND UNLABORED.
--- NOTE | 2021-01-04 08:30 | NUR ---
AWAKE AND ALERT. ORIENTED X3. REQUESTED ATIVAN THIS AM. DISCUSSED USE OF SCHEDULED CLONIPIN BUT PATIENT PREFERS ATIVAN. REFUSED CLONIPIN. LUNGS ARE CLEAR BILATERALLY, NO COUGH NOTED. SKIN IS INTACT WITHOUT REDNESS. IV TO RIGHT HAND IS PATENT WITHOUT REDNESS AT INSERTION SITE. DENIES NEEDS.
[2021-01-04 09:19] VITALS: BP 115/65
--- NOTE | 2021-01-04 10:00 | NUR ---
RESTING QUIETLY IN BED WITH EYES CLOSED. NO NEEDS. NOTED.
--- NOTE | 2021-01-04 11:41 | NUR ---
REQUESTED AND GIVEN 2MG DILAUDID WITH 4MG ZOFRAN FOR C/O ABDOMINAL AND BACK PAIN LEVEL 8. WILL MONITOR.
[2021-01-04 13:35] VITALS: BP 107/70
--- NOTE | 2021-01-04 13:42 | NUR ---
REQUESTED AND GIVEN ONE MG ATIVAN SLOW IVP FOR C/O NERVOUSNESS. WILL MONITOR.
--- NOTE | 2021-01-04 15:00 | NUR ---
IV TO RIGHT HAND LEAKING. RESITED TO LEFT HAND AFTER 2 ATTEMPS WITH 22G. TOLERATED WITHOUT C/O PAIN.
--- NOTE | 2021-01-04 15:39 | NUR ---
REQUESTED AND GIVEN 2MG DILAUDID WIT 4MG ZOFRAN SLOW IVP FOR C/O PAIN LEVEL 8. WILL MONITOR.
[2021-01-04 17:56] VITALS: BP 119/76
--- NOTE | 2021-01-04 19:45 | NUR ---
PATIENT RESTING IN BED WITH NO S/S OF DISTRESS. PATIENT REQUESTED DILAUDID AND ZOFRAN WHEN DUE. PATIENT DENIES OTHER NEEDS. BED IN LOWEST POSITION AND CALL LIGHT IN REACH. ENCOURAGED PATIENT TO CALL WITH NEEDS.
[2021-01-04 20:00] VITALS: BP 108/70
--- NOTE | 2021-01-04 20:08 | NUR ---
ADMINISTERED MEDS PER ORDERS. ENCOURAGED TO CALL WITH NEEDS.
[2021-01-05 01:10] VITALS: BP 101/54
[2021-01-05 04:00] VITALS: BP 104/50
--- NOTE | 2021-01-05 08:19 | NUR ---
PT AND SIGNIFICANT OTHER REQUESTING DISCHARGE SOON POSSIBLE. NO S/SX OF DISTRESS NOTED. BED LOW AND LOCKED, CALL LIGHT IN REACH. WILL CONTINUE TO MONITOR.
[2021-01-05] MEDS ORDERED: HUMULIN R100 UNIT/1 SC (09:15)
[2021-01-05 09:36] VITALS: BP 120/77
== END 2021-01-05 11:30 | disposition home or self-care (01) | DRG 74 ==
LOC: D.ER 23:32 → OBSVTIME 12-31 03:09 → D.MS 12-31 03:09 → D.M2 12-31 03:09 → D.MS 12-31 03:27
PROVIDERS: Family Medicine; ADMIT Legal Medicine; ATTEND Legal Medicine
DX: E11.43 Type 2 diabetes mellitus with diabetic autonomic (poly)neuropathy (principal); C81.90 Hodgkin lymphoma, unspecified, unspecified site; E87.1 Hypo-osmolality and hyponatremia; K31.84 Gastroparesis; E87.6 Hypokalemia; E83.42 Hypomagnesemia; E11.9 Type 2 diabetes mellitus without complications; I10 Essential (primary) hypertension; K21.9 Gastro-esophageal reflux disease without esophagitis; G89.29 Other chronic pain